=== PATIENT | male | born 1985 | race Caucasian/White ===

== ENCOUNTER → 2019-11-20 12:40 | Outpatient (BNVA) | payer OTHER, SELFPAY | PROVIDERS: Family Provider Counselor Professional; Visit Provider Family Medicine | DX: M25.571 Pain in right ankle and joints of right foot (principal); M25.471 Effusion, right ankle | CPT/HCPCS: 73610 ==

== ENCOUNTER 2022-02-26 21:20 | Inpatient (IN) | payer MEDICAID, SELFPAY ==
[2022-02-26 21:27] VITALS: BP 152/98; PULSE 95; RESP 18; TEMP 36.7; O2SAT 95; BMI 37.5
--- NOTE | 2022-02-26 21:34 | ED_ITS ---
HPI - General Adult General: Chief complaint: Psychiatric Symptoms Stated complaint: behavior Time Seen by Provider: 02/26/22 21:26 History of Present Illness: HPI: [36]yo patient w/ hx of depression BIBA for worsening depression. He reports suicidal ideation without plan. He feels so depressed that he cannot take care of his family would like to get help at this time. On arrival, the patient is AAOx3 and cooperative with my evaluation. No focal complaints of chest pain, shortness of breath, palpitations, N/V, focal GI/ complaints. Currently denies HI. No complaints of hallucinations. Onset: acute on chronic Duration: ongoing Location: home Severity: severe Associated symptoms: Deny chest pain, dyspnea, nausea, rash, palpitations or vom iting Review of Systems Const: Denies: fever(s) or chills Eyes: Denies: change in vision ENMT: Denies: mouth pain Card: Denies: chest pain or palpitations Resp: Denies: dyspnea or non-productive cough GI: Denies: abdominal pain, nausea, vomiting or diarrhea : Denies: dysuria Musc: Denies: extremity pain Skin/Breast: Denies: rash or new lesions Neuro: Denies: weakness in extremities Psych: Reports: depression and suicidal ideation [place]/Lymph: Denies: easy bruising PFSH ED PFSH: Medical History Depression Social History Smoking and tobacco status: former smoker Alcohol intake: never Physical Exam Const: COMMON NORMALS: alert HENMT: COMMON NORMALS: atraumatic HEAD & SCALP: atraumatic MOUTH: moist mucous membranes not abnormal Eye: COMMON NORMALS: EOMs intact bilaterally and conjunctivae normal CONJUN CTIVA: Yes conjunctivae normal Neck/C-Spine: COMMON NORMALS: full ROM and supple Resp: COMMON NORMALS: normal respiratory effort and clear to auscultation bilaterally AUSCULTATION: clear to auscultation bilaterally Cardio: COMMON NORMALS: regular rate RATE: regular rate GI: COMMON NORMALS: Soft to palpation and non-tender PALPATION: Yes Soft to palpation Extremity: COMMON NORMALS: full ROM Neuro: SENSORIUM/ORIENTATION: Yes alert MOTOR EXAM: No Abnormal motor strength present and Other motor observations present (no focal motor deficits) Psych: COMMON NORMALS: speech normal SPEECH: Yes normal speech MOOD & AFFECT: Yes depressed mood Course Vital Signs: Vital signs: Vital Signs Temperature 97.9 F 03/04/22 06:00 Pulse Rate 83 03/04/22 06:00 Respiratory Rate 20 H 03/04/22 06:00 Blood Pressure 138/80 03/04/22 06:00 Pulse Oximetry 97 03/04/22 06:00 MDM - General Adult Medical Decision Making [36]yo patient w/ hx of depression presenting for worsening depression, suicidal ideation and hopelessness. HDS, exam within normal limit Thoughts are linear and organized, and the patient has no AH/VH, or HI. Clinically the patient displays no overt toxidrome; they are well appearing, with low suspicion for toxic ingestion given history and exam. Symptoms unlikely 2/2 anemia, hypothyroidism, infection, or ICH. Workup: CBC, CMP, Lipase, salicylate/tylenol, UDS Lab findings: wnl [10:30pm] On reassessment, labs and workup wnl. Patient is hemodynamically stable with no acute medical complaints. Case discussed with psychiatric provider Dr. Faulkner at [facility] psych inpatient with recommendation for admission Disposition: Psych Lab Data : 03/02/22 04:02 03/02/22 04:02 Radiology Impressions Abdomen X-Ray 02/28/22 16:50 IMPRESSION: No acute findings. Abdomen/Pelvis CT 02/28/22 20:18 IMPRESSION: Diffuse colonic wall thickening consistent with colitis. Laboratory Results WBC 12.4 10^3/uL (4.0-10.0) H 02/26/22 22:10 RBC 4.84 10^6/uL (4.1-5.3) 02/26/22 22:10 Hgb 14.4 g/dL (11.7-16.6) 02/26/22 22:10 Hct 41.6 % (42.0-52.0) L 02/26/22 22:10 MCV 86.0 fl (80-94) 02/26/22 22:10 MCH 29.8 pg (28.0-34.0) 02/26/22 22:10 MCHC 34.6 g/dL (30.0-36.0) 02/26/22 22:10 RDW 12.6 % (12.1-15.1) 02/26/22 22:10 Plt Count 317 10^3/cmm (130-400) 02/26/22 22:10 MPV 9.0 fL (7.4-10.4) 02/26/22 22:10 Neut % (Auto) 73.0 % 02/26/22 22:10 Lymph % (Auto) 10.5 % 02/26/22 22:10 [place] % (Auto) 10.5 % 02/26/22 22:10 Eos % (Auto) 5.0 % 02/26/22 22:10 Baso % (Auto) 0.6 % 02/26/22 22:10 Neut # (Auto) 9.00 10^3/uL (1.8-7.7) H 02/26/22 22:10 Lymph # (Auto) 1.3 10^3/uL (0.8-4.8) 02/26/22 22:10 [place] # (Auto) 1.3 10^3/uL (0.2-0.9) H 02/26/22 22:10 Eos # (Auto) 0.6 10^3/uL (0.0-0.8) 02/26/22 22:10 Baso # (Auto) 0.1 10^3/uL (0.0-0.1) 02/26/22 22:10 Nucleated RBC % (auto) 0 % 02/26/22 22:10 Nucleated RBCs # 0.0 /100WBC 02/26/22 22:10 Sodium 138 mmol/L (136-145) 02/26/22 22:10 Potassium 3.9 mmol/L (3.5-5.1) 02/26/22 22:10 Chloride 101 mmol/L (98-107) 02/26/22 22:10 Carbon Dioxide 25 mmol/L (22-29) 02/26/22 22:10 Anion Gap 15.9 (5-19) 02/26/22 22:10 BUN 12 mg/dL (6-20) 02/26/22 22:10 Creatinine 0.8 mg/dL (0.7-1.2) 02/26/22 22:10 GFR Calculation 109.4 mL/min (90-130) 02/26/22 22:10 Glucose 117 mg/dL (65-115) H 02/26/22 22:10 Calculated Osmolality 287 mOsm/kg (285-295) 02/26/22 22:10 Calcium 9.5 mg/dL (8.5-10.5) 02/26/22 22:10 Total Bilirubin 0.7 mg/dL (0.15-1.2) 02/26/22 22:10 AST 124 U/L (0-40) H 02/26/22 22:10 ALT 134 U/L (0-41) H 02/26/22 22:10 Alkaline Phosphatase 52 IU/L (40-130) 02/26/22 22:10 Total Protein 7.0 g/dL (6.6-8.7) 02/26/22 22:10 Albumin 4.4 g/dL (3.5-5.2) 02/26/22 22:10 Globulin 2.6 g/dL (1.3-4.6) 02/26/22 22:10 Lipase 14 U/L (13-60) 02/26/22 22:10 Salicylates 0.5 mg/dL (3-10) L 02/26/22 22:10 Urine Opiates Screen Negative ng/mL (Negative) 02/26/22 22:10 Acetaminophen < 5.0 ug/mL (10-30) L 02/26/22 22:10 Ur Barbiturates Screen Negative ng/mL (Negative) 02/26/22 22:10 Ur Phencyclidine Scrn Negative ng/mL (Negative) 02/26/22 22:10 Ur Amphetamines Screen Negative ng/mL (Negative) 02/26/22 22:10 U Benzodiazepines Scrn Negative ng/mL (Negative) 02/26/22 22:10 Urine Cocaine Screen Negative ng/mL (Negative) 02/26/22 22:10 U Marijuana (THC) Screen Positive ng/mL (Negative) H 02/26/22 22:10 Ethyl Alcohol < 10 mg/dL (0-10) 02/26/22 22:10 Discharge Plan Discharge Patient Disposition: Admitted As Inpatient Admit Provider: Pramod Faulkner Clinical Impression: Depression with suicidal ideation, Hopelessness Condition: Stable Coding Level of Care Code ED Coal Miner for Chg Fwd Exam Comprehensive
[2022-02-26 22:14] LABS: Basophils # 0.1 10^3/uL (0.0-0.1); Basophils % 0.6 %; Eosinophils # 0.6 10^3/uL (0.0-0.8); Hematocrit 41.6 % (42.0-52.0); Hemoglobin 14.4 g/dL (11.7-16.6); Lymphocytes # 1.3 10^3/uL (0.8-4.8); Lymphocytes % 10.5 %; Mean Corpuscular HGB Conc 34.6 g/dL (30.0-36.0); Mean Corpuscular Hemoglobin 29.8 pg (28.0-34.0); Monocytes # 1.3 10^3/uL (0.2-0.9); Monocytes % 10.5 %; Nucleated Red Blood Cells % 0 %; Platelet Count 317 10^3/cmm (130-400); Red Blood Count 4.84 10^6/uL (4.1-5.3); Red Cell Distribution Width 12.6 % (12.1-15.1); White Blood Count 12.4 10^3/uL (4.0-10.0)
[2022-02-26 22:30] LABS: Potassium 3.9 mmol/L (3.5-5.1)
[2022-02-26 22:33] LABS: Amphetamines Screen Urine Negative (Negative); Barbiturates Screen Urine Negative (Negative); Benzodiazepines Screen Urine Negative (Negative); Cocaine Screen Urine Negative (Negative); Opiate Screen Urine Negative (Negative); PCP Screen Urine Negative (Negative); THC Screen Urine Positive (Negative)
[2022-02-26 22:35] LABS: Acetaminophen < 5.0 ug/mL (10-30); Alanine Aminotransferase 134 U/L (0-41); Albumin Level 4.4 g/dL (3.5-5.2); Alkaline Phosphatase 52 IU/L (40-130); Anion Gap 15.9 (5-19); Aspartate Amino Transferase 124 U/L (0-40); Blood Urea Nitrogen 12 mg/dL (6-20); Calcium 9.5 mg/dL (8.5-10.5); Carbon Dioxide 25 mmol/L (22-29); Chloride 101 mmol/L (98-107); Globulin 2.6 g/dL (1.3-4.6); Glomerular Filtration Rate 109.4 mL/min (90-130); Glucose 117 mg/dL (65-115); Lipase 14 U/L (13-60); Osmolality Calculated 287 mOsm/kg (285-295); Salicylate 0.5 mg/dL (3-10); Sodium 138 mmol/L (136-145); Total Bilirubin 0.7 mg/dL (0.15-1.2)
[2022-02-26 23:16] VITALS: BP 151/97; PULSE 94; RESP 18; TEMP 36.8; O2SAT 96
[2022-02-26 23:28] VITALS: BP 145/99; PULSE 93; RESP 18; TEMP 36.8; O2SAT 99
[2022-02-26 23:32] LABS: Alcohol Level < 10 mg/dL (0-10)
[2022-02-27] MEDS: OLANZapine 5 mg ODT PO ×2 (00:31→07:42)
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
[2022-02-27 06:00] VITALS: BP 138/88; PULSE 89; RESP 16; TEMP 36.9; O2SAT 96
--- NOTE | 2022-02-27 07:43 | PC.NURSE ---
Patient at nurses station with pressured speech, flight of ideas and reading from his menu loudly. Zydis 5mg sl given for this.
[2022-02-27] MEDS: hyDROXYzine 25 mg Capsule 50 MG PO (08:12)
--- NOTE | 2022-02-27 08:12 | PC.NURSE ---
PRN VISTARIL 50 MG GIVEN PO PER PT C/O ANXIETY
--- NOTE | 2022-02-27 13:05 | PC.OT ---
PER NURSING REQUEST, NPU OT EVAL NOT PERFORMED DUE TO AGITATION. WILL TRY AGAIN TOMORROW
[2022-02-27 14:00] VITALS: BP 171/96; PULSE 98; RESP 20; TEMP 36.7; O2SAT 95
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
[2022-02-27 18:55] VITALS: BP 156/96; PULSE 115; TEMP 37.4; O2SAT 91
[2022-02-27 22:00] VITALS: BP 156/96; PULSE 115; RESP 20; TEMP 37.4; O2SAT 91
[2022-02-28 06:00] VITALS: BP 132/74; PULSE 104; RESP 16; TEMP 36.8; O2SAT 97
--- NOTE | 2022-02-28 09:15 | PC.NURSE ---
IN ROOM CALM AND COOPERATIVE WITH ASSESSMENT. APPEARS TO HAVE POISON ALINA OVER ENTIRE BODY. ORDERS RECEIVED FOR CALAMINE LOTION. PT APPLIED ORDERED. DENIES PAIN. DENIES SI/HI AND AVH AT THIS TIME. SUPPORT VOICED.
[2022-02-28 14:00] VITALS: BP 150/93; PULSE 119; RESP 18; TEMP 36.9; O2SAT 94
[2022-02-28] MEDS: ondansetron 4 MG Tablet PO (14:18)
--- NOTE | 2022-02-28 14:20 | PC.NURSE ---
NEW ORDER NEW ORDER RECEIVED TO PLACE ORDER FOR MEDICAL CONSULT. PT IS COVERED IN RAISED RASH. CONSULT WITH DR. LEAL COMPLETED. PT C/O STOMACH PAIN WITH DIARRHEA. PT HAS HYPOACTIVE BS TIMES 4 IN ALL QUADRANTS. REPORTS HE IS NAUSEATED. ZOFRAN 4 MG GIVEN ORDERED.
--- NOTE | 2022-02-28 14:24 | P.CONIM_ITS ---
Providers/Reason For Consult Consulting Physician/Specialty*: Internal Medicine/Christy MD Elham Reason for Consult*: abdominal pain, rash Requesting Physician: Dr. Faulkner Attending Physician: Pramod Faulkner MD History of Present Illness History of Present Illness Sebas Bush is a 36 year old male with no significant past medical history presented to the hospital today for suicidal ideation. He has been admitted in the n.p.o. and is being treated for that. During his stay in the n.p.o. patient developed a rash on his bilateral arms bilateral legs, abdomen area any complaint of abdominal pain. He has been having diarrhea for which hospitalist team has been consulted. Patient states the diarrhea has been going on for the last few days. He states his watery diarrhea and he has gone to the bathroom several times pretty much every 1 hour. He states that in the past he was being worked up for Crohn's disease but was not sure what the result of it was. He states he has never had any imaging done for his abdomen. However he has had a colonoscopy done which did not show any Crohn's at that point. He was recently at [facility] for which she received IV antibiotics. He is unsure of what his exact diagnoses worse. He is somewhat of a poor historian. Also he states that he is unsure if he has had any tick bites. He has not seen a tick on him. He states but he is in an area where he could have had a tick bite but is unsure. The rashes on his bilateral forearms and bilateral lower extremities along with some area of his abdomen. He says the rash itches. He also complains of mild abdominal pain which is diffuse in nature. Denies any constipation, fever, shortness of breath, chest pain. Patient is a smoker. Medications/Allergies Home Medications Medication Instructions Recorded Confirmed Last Taken Type No Known Home Medications 11/20/19 02/26/22 Unknown History Allergies Allergy/AdvReac Type Severity Reaction Status Date / Time No Known Allergies Allergy Verified 12/03/19 09:31 Current Medications Generic Name Dose Route Start Last Admin Trade Name Freq PRN Reason Stop Dose Admin Hydroxyzine Pamoate 50 mg 02/26/22 23:28 02/27/22 08:12 Hydroxyzine 25 Mg Capsule PO 50 mg Q6H PRN Administration ANXIETY Olanzapine 5 mg 02/26/22 23:28 02/27/22 07:42 Olanzapine 5 Mg Odt PO 5 mg Q4H PRN Administration Agitation/Psychosis Ondansetron HCl 4 mg 02/26/22 23:28 02/28/22 14:18 Ondansetron 4 Mg Tablet PO 4 mg Q6H PRN Administration NAUSEA AND VOMITING PFSH Acute PFSH: Medical History Depression Social History Smoking and tobacco status: former smoker Alcohol intake: never Vitals/I&O/Wt Last Vital Signs Temp 98.2 F 02/28/22 06:00 Pulse 104 H 02/28/22 06:00 Resp 16 02/28/22 06:00 BP 132/74 02/28/22 06:00 Pulse Ox 97 02/28/22 06:00 Weight last 48 hrs Weight 129.274 kg Physical Exam Narrative: General: Alert oriented x3, patient seen sitting up in bed appearing comfortable no acute distress. HEENT: Normocephalic, atraumatic, EOMI, breathing normally. Cardio: Regular rate rhythm, normal S1-S2, no murmurs Respiratory: Good bilateral air entry, no wheezes no rhonchi appreciated GI: Abdomen soft, nontender, nondistended, very hypoactive bowel sounds Behavior: Appropriate and cooperative Extremities: no edema, no cyanosis Data : 02/28/22 17:25 02/28/22 17:25 A&P Assessment and plan (1) Rash: Status: Acute (2) Cannabis use disorder, severe, dependence: Status: Acute (3) Major depression, recurrent: Status: Acute (4) Depression with suicidal ideation: Status: Acute (5) Hopelessness: Status: Acute (6) Diarrhea: Status: Acute (7) Abdominal pain: Status: Acute Plan #Abdominal pain #Diarrhea, rule out colitis #Macular rash bilateral upper and lower extremities, abdomen ? I will check stool culture for ova parasites, bacteria, C. difficile ? Start normal saline IV fluids - Keep patient n.p.o. for now and advance diet as tolerated -Check basic laboratory panel, CBC, CMP, magnesium ? We will check KUB and CT scan of abdomen to rule out colitis ? Check stool for lactoferrin ? Check for tick panel ? Patient has received Benadryl for his rash at this time which appears to be getting better. I will continue the same. Also apply calamine lotion as needed. ? I will hold off on antibiotics for now until results of stool culture and CAT scan -Monitor patient for now #Depression, anxiety, suicidal ideation ? Management as per primary psychiatric team Full code Consult Attestations Medical Necessity Statement: Defer to primary team. Coding Level of Care Code Acute Chopper Feeder for [facility] Fwd Diagnoses Rash R21 Cannabis use disorder, severe, dependence F12.20 Major depression, recurrent F33.9 Depression with suicidal ideation F32.A; R45.851 Hopelessness R45.89 Diarrhea R19.7 Abdominal pain R10.9
--- NOTE | 2022-02-28 16:50 | XRR_ITS ---
PROCEDURE INFORMATION: Exam: XR Abdomen Exam date and time: 02/28/2022 5:42 PM Age: 36 years old Clinical indication: Abdominal pain; Additional info: Hypoactive bowel sounds TECHNIQUE: Imaging protocol: Radiologic exam of the abdomen. Views: Frontal supine view of the abdomen. 1 View. COMPARISON: No relevant prior studies available. FINDINGS: Gastrointestinal tract: Normal. No bowel dilation. Bones/joints: Unremarkable. XR/XR abdomen 1V* [id number] IMPRESSION: No acute findings.
--- NOTE | 2022-02-28 17:38 | PC.NURSE ---
DR. LEAL WAS HERE ON UNIT AT APPROXIMATELY 1600. DR. LEAL PLACED ORDERS FOR URINE CULTURE, CXR, CDIFF AND STOOL CULTURES. UA AND STOOL OBTAINED, LAB HERE TO DRAW BLOOD CULTURES. EDUCATION PROVIDED TO PT. VERBALIZES UNDERSTANDING.
[2022-02-28 17:40] LABS: Basophils # 0.1 10^3/uL (0.0-0.1); Basophils % 0.5 %; Eosinophils # 0.7 10^3/uL (0.0-0.8); Eosinophils % 4.6 %; Hematocrit 41.1 % (42.0-52.0); Lymphocytes % 13.8 %; Mean Corpuscular HGB Conc 34.1 g/dL (30.0-36.0); Mean Corpuscular Hemoglobin 29.6 pg (28.0-34.0); Mean Corpuscular Volume 86.9 fl (80-94); Monocytes # 1.1 10^3/uL (0.2-0.9); Monocytes % 7.8 %; Neutrophils # 10.44 10^3/uL (1.8-7.7); Neutrophils % 72.5 %; Nucleated Red Blood Cells % 0 %; Platelet Count 300 10^3/cmm (130-400); Red Blood Count 4.73 10^6/uL (4.1-5.3); Red Cell Distribution Width 12.7 % (12.1-15.1); White Blood Count 14.4 10^3/uL (4.0-10.0)
--- NOTE | 2022-02-28 18:12 | W.PM.NPUPNS ---
Subjective NPU Subjective: Patient presents today reporting that he is focused on what ever he has to do to get better. He talked about wondering if we had employment opportunities or special work programs or anything like that he really feels like he needs that have something that has housing and work wrapped into it for him to get back on his feet. He continues to have the elaborate rash that was identified yesterday. Hospitalist consult was conducted and investigative studies are underway. Mental Status Exam MSE Comments: This is an obese white male with reddish beck in hospital scrubs with limited grooming and adequate eye contact. No abnormal movements except for mild psychomotor agitation. Mostly cooperative with exam in mild distress. Speech was normal rate and volume. Mood described as I feel like I am doing better I does want to get help, affect is congruent. Thought process, mostly organized. Thought content: patient denies any suicidal or homicidal ideation, reports some paranoia and persecutory delusions noted, and endorses auditory and visual hallucinations sometimes. Attention and concentration are intact and memory appeared reliable but none were formally tested. He is alert and oriented three times. Insight and judgment are limited versus impaired. Impulse control is impaired. Vitals/I&O/Wt Last Vital Signs Temp 98.3 F 02/28/22 21:06 Pulse 110 H 02/28/22 21:06 Resp 20 H 02/28/22 21:06 BP 130/75 02/28/22 21:06 Pulse Ox 96 02/28/22 21:06 Data NPU : 02/28/22 17:25 02/28/22 17:25 Micro: Microbiology 02/28/22 17:19 Stool Lactoferrin - Final Stool - Stool Aspirate 02/28/22 17:25 Blood Culture - Preliminary Blood SPECIMEN COLLECTED 02/28/22 17:25 Blood Culture - Preliminary Blood SPECIMEN COLLECTED Microbiology 02/28/22 17:19 Stool - Stool Aspirate Stool Lactoferrin - Final 02/28/22 17:25 Blood Blood Culture - Preliminary SPECIMEN COLLECTED 02/28/22 17:25 Blood Blood Culture - Preliminary SPECIMEN COLLECTED A&P Assessment and plan (1) Cannabis use disorder, severe, dependence: Status: Acute (2) Major depression, recurrent: Status: Acute (3) Depression with suicidal ideation: Status: Acute (4) Hopelessness: Status: Acute (5) Rash: Status: Acute Plan This is a 36 year old white male with a history of trauma and genetic loading for mental health and addiction issues who presents having been brought in due to being deemed a danger to his children, endorsing he is doing well without medications and wanting to continue without them. 1.? Continue without medications. while investigation underway but discussing mood stabilizer if he would consider. 2.? Encourage individual, group and milieu therapy 3.? Continue q-15 minute check for safety 4.? Recommend sober living treatment at the highest level of care to which the patient is willing to commit. 5. Hospitalist consult requested and undertaken. Awaiting results. Investigating GI and skin complaints including the rash over most of his skin. Involuntary Hold Information 96 Hour Hold: 96 Hour Involuntary Admission: No Attestations NPU Medical Necessity Statement*: Inpatient hospitalization is medically necessary and the clinically appropriate intervention at this time. We will monitor medications and make changes as indicated. Likely length of stay is three to five days. Coding Level of Care Code Acute Customer Support Representative for [facility] Diagnoses Cannabis use disorder, severe, dependence F12.20 Major depression, recurrent F33.9 Depression with suicidal ideation F32.A; R45.851 Hopelessness R45.89 Rash R21
[2022-02-28 18:40] LABS: Alanine Aminotransferase 97 U/L (0-41); Alkaline Phosphatase 67 IU/L (40-130); Anion Gap 13.4 (5-19); Aspartate Amino Transferase 48 U/L (0-40); Blood Urea Nitrogen 9 mg/dL (6-20); Calcium 9.1 mg/dL (8.5-10.5); Carbon Dioxide 23 mmol/L (22-29); Chloride 99 mmol/L (98-107); Globulin 3.1 g/dL (1.3-4.6); Glomerular Filtration Rate 95.5 mL/min (90-130); Glucose 120 mg/dL (65-115); Osmolality Calculated 274 mOsm/kg (285-295); Potassium 3.4 mmol/L (3.5-5.1); Sodium 132 mmol/L (136-145); Total Bilirubin 0.4 mg/dL (0.15-1.2); Total Protein 7.1 g/dL (6.6-8.7)
--- NOTE | 2022-02-28 20:18 | CTR_ITS ---
PROCEDURE INFORMATION: Exam: CT Abdomen And Pelvis With Contrast Exam date and time: 02/28/2022 8:51 PM Age: 36 years old Clinical indication: Abdominal pain; Generalized; Patient HX: Diffuse abd pain with reduced bowel sounds. ; Additional info: Hypoactive abdominal sounds, abdominal pain TECHNIQUE: Imaging protocol: Computed tomography of the abdomen and pelvis with contrast. Radiation optimization: All CT scans at this facility use at least one of these dose optimization techniques: automated exposure control; mA and/or kV adjustment per patient size (includes targeted exams where dose is matched to clinical indication); or iterative reconstruction. Contrast material: OMNI 350; Contrast volume: 75 ml; Contrast route: INTRAVENOUS (IV); COMPARISON: CR (ABDOMEN, ) 02/28/2022 5:42 PM RADIATION DOSE METRICS: Total DLP (mGy-cm): 1995.61 FINDINGS: Liver: Normal. No mass. Gallbladder and bile ducts: Normal. No calcified stones. No ductal dilation. Pancreas: Normal. No ductal dilation. Spleen: Normal. No splenomegaly. Adrenal glands: Normal. No mass. Kidneys and ureters: Normal. No hydronephrosis. Stomach and bowel: Diffuse colonic wall thickening consistent with colitis. Appendix: No evidence of appendicitis. Intraperitoneal space: Unremarkable. No free air. No significant fluid collection. Vasculature: Unremarkable. No abdominal aortic aneurysm. Lymph nodes: Unremarkable. No enlarged lymph nodes. Urinary bladder: Unremarkable as visualized. Reproductive: Unremarkable as visualized. Bones/joints: Unremarkable. No acute fracture. Soft tissues: Unremarkable. CT/CT abdomen pelvis w con* [id number] IMPRESSION: Diffuse colonic wall thickening consistent with colitis.
[2022-02-28] MEDS: iohexol 300 mg/mL 100 mL Btl IV (20:49)
[2022-02-28 21:06] VITALS: BP 130/75; PULSE 110; RESP 20; TEMP 36.8; O2SAT 96
[2022-02-28] MEDS: loperamide 2 mg Capsule PO (23:24)
--- NOTE | 2022-02-28 23:28 | PC.NURSE ---
PRN PT REQUESTED SOMETHING TO HELP WITH DIARRHEA. PT STATES HE HAS HAD MULTIPLE TRIPS TO THE BATHROOM. IMODIUM WAS GIVEN. PT IS RESTING IN BED
[2022-03-01 05:08] LABS: Add Urine Culture? No; Bacteria Urine TRACE /hpf; Bilirubin Urine 1+ (Negative); Blood Urine Neg (Negative); Glucose Urine UA Norm (Normal); Ketones Urine 1+ (Negative); Leukocyte Esterase Urine Negative (Negative); Mucus Urine 4+ /hpf; Nitrate Urine Negative (Negative); Protein Urine Neg (Negative); RBC Urine 0-4 /hpf (0-2); Specific Gravity, Urine 1.025 (1.005-1.030); Squamous Epithelial Cell Urine 0-4 /hpf (0-5); Urine Appearance Clear (CLEAR); Urine Color Yellow (Yellow); Urobilinogen Urine Norm (Negative); WBC Urine 0-4 /hpf (0-5); pH Urine 5 (5-7)
[2022-03-01 06:00] VITALS: BP 165/83; PULSE 95; RESP 16; TEMP 36.6; O2SAT 95
--- NOTE | 2022-03-01 08:23 | PC.NURSE ---
DR. LEAL CALLED THIS RN AND NOTIFIED THAT PT NEEDS TRANSFERRED TO [facility]. CALLED HOUSE SUP TO GET BED. WAITING ON BED. PT EDUCATED THAT HE WOULD BE LEAVING SOON A BED IS AVAILABLE. DR. LEAL STATED THAT PT HAS COLITIS.
--- NOTE | 2022-03-01 12:35 | PC.NURSE ---
Nurse educated about pt being NPO! Pt did however eat lunch! Pt reducated on the importance of staying NPO. Pt agreed that he would comply.Pt has been NPO starting at 12:05.
--- NOTE | 2022-03-01 13:01 | PC.NURSE ---
CRITICAL RESULTS LAB CALLED AND NOTIFIED FERRULER OF CRITICAL RESULT. PT IS POSITIVE FOR CAMPYLOBACTER FROM STOOL. NOTIFIED DR. LEAL OF RESULTS. DR. LEAL STATED THAT PT NEEDS TO BE MOVED TO [facility] TO START ANTIBIOTIC THERAPY. CALLED HOUSE SUP, STATES [facility] IS REARRANGING BEDS TO GET PT MOVED.
[2022-03-01 14:00] VITALS: BP 142/90; PULSE 92; RESP 18; O2SAT 94
--- NOTE | 2022-03-01 14:55 | W.PM.NPUPNS ---
Subjective NPU Subjective: Patient presents today reporting that he is glad that we were able to get the medical team to explore his situation. He reports that at times he had flareups and was not sure what was really going on. We agreed that at this point without significant concerns we would monitor him on the hospital floor and consider medications for his mental health issues as they were initially concerns for possible medication allergies. Otherwise he denied any issues and reports that he is only trigger to the medical floor. Mental Status Exam MSE Comments: This is an obese white male with reddish beck in hospital scrubs with limited grooming and adequate eye contact. No abnormal movements except for mild psychomotor agitation. Mostly cooperative with exam in no acute distress. Speech was normal rate and volume. Mood described as okay, affect is congruent. Thought process, mostly organized. Thought content: patient denies any suicidal or homicidal ideation, reports some paranoia and persecutory delusions noted, and endorses auditory and visual hallucinations sometimes. Attention and concentration are intact and memory appeared reliable but none were formally tested. He is alert and oriented three times. Insight and judgment are limited versus impaired. Impulse control is impaired. Vitals/I&O/Wt Last Vital Signs Temp 97.9 F 03/01/22 06:00 Pulse 95 03/01/22 06:00 Resp 16 03/01/22 06:00 BP 165/83 03/01/22 06:00 Pulse Ox 95 03/01/22 06:00 Data NPU : 03/02/22 04:02 03/02/22 04:02 Micro: Microbiology 02/28/22 17:19 Enteric Pathogens (PCR) - Final Stool Routine Collection Parasite Antigen Panel - Final 02/28/22 17:19 C.difficile Toxin B Gene (PCR) - Final Stool 02/28/22 17:19 Stool Lactoferrin - Final Stool - Stool Aspirate 02/28/22 17:25 Blood Culture - Preliminary Blood SPECIMEN COLLECTED 02/28/22 17:25 Blood Culture - Preliminary Blood SPECIMEN COLLECTED Microbiology 02/28/22 17:19 Stool Routine Collection Enteric Pathogens (PCR) - Final 02/28/22 17:19 Stool Routine Collection Parasite Antigen Panel - Final 02/28/22 17:19 Stool C.difficile Toxin B Gene (PCR) - Final 02/28/22 17:19 Stool - Stool Aspirate Stool Lactoferrin - Final 02/28/22 17:25 Blood Blood Culture - Preliminary SPECIMEN COLLECTED 02/28/22 17:25 Blood Blood Culture - Preliminary SPECIMEN COLLECTED A&P Assessment and plan (1) Abdominal pain: Status: Acute (2) Diarrhea: Status: Acute (3) Rash: Status: Acute (4) Cannabis use disorder, severe, dependence: Status: Acute (5) Major depression, recurrent: Status: Acute (6) Depression with suicidal ideation: Status: Acute (7) Hopelessness: Status: Acute Plan This is a 36 year old white male with a history of trauma and genetic loading for mental health and addiction issues who presents having been brought in due to being deemed a danger to his children, endorsing he is doing well without medications and wanting to continue without them. 1.? Continue without medications. We will continue to discuss mood stabilizer if he would consider. 2.? Encourage individual, group and milieu therapy 3.? Continue q-15 minute check for safety 4.? Recommend sober living treatment at the highest level of care to which the patient is willing to commit. 5.? Appreciate hospitalist consult and will await transfer and continue following patient on the MedSurg floor. Involuntary Hold Information 96 Hour Hold: 96 Hour Involuntary Admission: No Attestations NPU Medical Necessity Statement*: N/A. We will continue to monitor on the MedSurg floor but defer to primary team for medical necessity. Coding Level of Care Code Acute Accounts Payable Supervisor for g Fwd Diagnoses Abdominal pain R10.9 Diarrhea R19.7 Rash R21 Cannabis use disorder, severe, dependence F12.20 Major depression, recurrent F33.9 Depression with suicidal ideation F32.A; R45.851 Hopelessness R45.89
[2022-03-01 16:34] VITALS: BP 144/81; PULSE 87; RESP 18; TEMP 36.4; O2SAT 95
--- NOTE | 2022-03-01 16:34 | PC.NURSE ---
PT AMBULATING IN HALLWAY, BECAME UNSTEADY ON FEET. THIS RN UP TO PT SIDE AND ASSISTED TO ROOM. PT LAID DOWN TO REST. VS 144/81, 87, 20 95% ON RA AND TEMP 97.5. CALLED MED SURG TO GIVE REPORT. NURSE ON FLOOR IS TO HAVE RN CALL THIS RN WITH REPORT.
--- NOTE | 2022-03-01 17:05 | PC.NURSE ---
TRANSFER TO [facility] SUR[facility] PT TRANSFERRED TO [facility] SURGE ROOM ROOM 276-1. TRANSFERRED WITH DIRECTOR AND THIS RN. PT WAS REPORT STOMACH PAIN DURING TRANSFERRING UP TO [facility] SUR[facility]. ASSISTED TO BED. REPORTED TO NURSE THAT PT WAS ON FLOOR. DIRECTOR REMAINED WITH PT UNTIL ONE ON ONE STAFF WAS AVAILABLE TO SIT WITH PT. REPORT GIVEN TO MOIRA IZQUIERDO.
[2022-03-01] MEDS: acetaminophen 325 mg Tablet 650 MG PO ×2 (17:27→22:22)
[2022-03-01] MEDS: metroNIDAZOLE IV 500 MG/100 ML PREMIX 100 MG IV (17:41)
--- NOTE | 2022-03-01 19:25 | PM.PN ---
Subjective Subjective: Seen today. Patient no longer NPO. He started eating. Abdomen does feel a little better. CT scan shows colitis Stool culture positive for Campylobacter Vitals/I&O/Wt Last Vital Signs Temp 97.5 F L 03/01/22 16:34 Pulse 87 03/01/22 16:34 Resp 18 03/01/22 16:34 BP 144/81 03/01/22 16:34 Pulse Ox 95 03/01/22 16:34 Physical Exam Narrative: General: Alert oriented x3, no acute distress Cardio: Regular rate rhythm, normal S1-S2, no murmurs Respiratory: Good bilateral air entry, no wheezes no rhonchi appreciated GI: Abdomen soft, nontender, nondistended, hypoactive bowel sounds but present. Behavior: Appropriate and cooperative Extremities: no edema, no cyanosis, macular rash bilateral upper and lower extremities, including abdomen appears much better compared to yesterday and improving. Data : 02/28/22 17:25 02/28/22 17:25 Micro: Microbiology 02/28/22 17:25 Blood Culture - Preliminary Blood NEGATIVE TO DATE 02/28/22 17:25 Blood Culture - Preliminary Blood NEGATIVE TO DATE 02/28/22 17:19 Enteric Pathogens (PCR) - Final Stool Routine Collection Parasite Antigen Panel - Final 02/28/22 17:19 C.difficile Toxin B Gene (PCR) - Final Stool 02/28/22 17:19 Stool Lactoferrin - Final Stool - Stool Aspirate A&P Assessment and plan (1) Abdominal pain: Status: Acute (2) Diarrhea: Status: Acute (3) Rash: Status: Acute (4) Cannabis use disorder, severe, dependence: Status: Acute (5) Major depression, recurrent: Status: Acute (6) Depression with suicidal ideation: Status: Acute (7) Hopelessness: Status: Acute Plan #Abdominal pain and diarrhea secondary to Campylobacter jejuni colitis #Macular rash bilateral upper and lower extremities, abdomen ? Stool culture positive for Campylobacter ? Continue normal saline 125 cc/h ? Start GI soft diet ? Labs ordered for today are still pending. Unsure why they have not been processed yet ? Start Zosyn IV. Move patient to medical surgical floor. ? WBC count elevated 14,000 from last yesterday evening. ? We will continue current treatment and possibly switch to oral azithromycin after day of IV. ? Tick panel pending ? Continue Benadryl for patient's rash which is already appearing much better compared to before. Unsure what might of caused it. It could be a possible allergic reaction to a drug which I cannot identify at this time. -We will reassess patient in a.m. ? Check labs in a.m. again. #Depression, anxiety, suicidal ideation ? Management as per primary psychiatric team Full code Attestations Medical Necessity Statement*: Defer to primary team. Coding Level of Care Code Acute Internal Grinder for [facility] Fwd Diagnoses Abdominal pain R10.9 Diarrhea R19.7 Rash R21 Cannabis use disorder, severe, dependence F12.20 Major depression, recurrent F33.9 Depression with suicidal ideation F32.A; R45.851 Hopelessness R45.89
[2022-03-01 19:47] VITALS: BP 153/94; PULSE 86; RESP 19; TEMP 36.7; O2SAT 96
[2022-03-01] MEDS: piperacillin-tazobactam 3.375 GM in sodium chloride 0.9% (plus) 50 ML IV (20:19)
[2022-03-01] MEDS: sodium chloride 0.9% 1,000 ML 125 ML IV (20:20)
[2022-03-01] MEDS: trazodone 50 mg Tablet PO (20:21)
[2022-03-01] MEDS: haloperidol 5 mg Tablet PO (20:21)
[2022-03-01 22:00] VITALS: BP 118/75; PULSE 104; RESP 17; TEMP 36.6; O2SAT 96
[2022-03-02] MEDS: metroNIDAZOLE IV 500 MG/100 ML PREMIX 100 MG IV (02:34)
[2022-03-02] MEDS: sodium chloride 0.9% 1,000 ML 125 ML IV ×2 (02:34→11:14)
[2022-03-02] MEDS: piperacillin-tazobactam 3.375 GM in sodium chloride 0.9% (plus) 50 ML IV ×2 (02:34→11:14)
[2022-03-02 04:06] VITALS: BP 98/64; PULSE 66; RESP 16; TEMP 36.7; O2SAT 96
[2022-03-02 04:32] LABS: Basophils # 0.1 10^3/uL (0.0-0.1); Eosinophils # 0.7 10^3/uL (0.0-0.8); Eosinophils % 8.8 %; Hemoglobin 13.1 g/dL (11.7-16.6); Lymphocytes # 1.7 10^3/uL (0.8-4.8); Lymphocytes % 20.3 %; Mean Corpuscular HGB Conc 34.5 g/dL (30.0-36.0); Mean Corpuscular Hemoglobin 29.6 pg (28.0-34.0); Mean Corpuscular Volume 85.8 fl (80-94); Mean Platelet Volume 9.3 fL (7.4-10.4); Monocytes # 1.2 10^3/uL (0.2-0.9); Monocytes % 13.9 %; Neutrophils # 4.64 10^3/uL (1.8-7.7); Neutrophils % 55.3 %; Nucleated Red Blood Cells % 0 %; Platelet Count 207 10^3/cmm (130-400); Red Blood Count 4.43 10^6/uL (4.1-5.3); Red Cell Distribution Width 12.7 % (12.1-15.1); White Blood Count 8.4 10^3/uL (4.0-10.0)
[2022-03-02 04:51] LABS: Lactate (Lactic Acid level) 0.9 mmol/L (0.5-2.2)
[2022-03-02 04:53] LABS: Blood Urea Nitrogen 9 mg/dL (6-20); Calcium 8.6 mg/dL (8.5-10.5); Carbon Dioxide 24 mmol/L (22-29); Chloride 106 mmol/L (98-107); Glomerular Filtration Rate 109.4 mL/min (90-130); Glucose 98 mg/dL (65-115); Osmolality Calculated 289 mOsm/kg (285-295); Sodium 140 mmol/L (136-145)
[2022-03-02 04:59] LABS: Anion Gap 14.3 (5-19); Potassium 4.3 mmol/L (3.5-5.1)
[2022-03-02 06:00] VITALS: BP 123/55; PULSE 83; RESP 18; TEMP 36.7; O2SAT 97
--- NOTE | 2022-03-02 11:10 | P.PN_ITS ---
Subjective Subjective: Seen this morning. Patient is longer having diarrhea is doing a lot better compared to when I saw him yesterday. Patient was on Zosyn and IV metronidazole. Has been afebrile overnight. Rash is almost resolved as well. Vitals/I&O/Wt Last Vital Signs Temp 98.0 F 03/02/22 06:00 Pulse 83 03/02/22 06:00 Resp 18 03/02/22 06:00 BP 123/55 03/02/22 06:00 Pulse Ox 97 03/02/22 06:00 03/01/22 03/02/22 03/02/22 22:59 06:59 14:59 Intake Total 380 / 380 979.167 / 1359.167 Balance 380 / 380 979.167 / 1359.167 Weight last 48 hrs Weight 130.317 kg Physical Exam Narrative: General: Alert oriented x3, no acute distress Cardio: Regular rate rhythm, normal S1-S2, no murmurs Respiratory: Good bilateral air entry, no wheezes no rhonchi appreciated GI: Abdomen soft, nontender, nondistended, normoactive bowel sounds, improved abdominal exam compared to yesterday. Behavior: Appropriate and cooperative Extremities: no edema, no cyanosis, macular rash bilateral upper and lower extremities, including abdomen appears much better compared to yesterday and is almost resolved. Data : 03/02/22 04:02 03/02/22 04:02 Micro: Microbiology 02/28/22 15:57 Urine Culture - Final Urine,Clean Catch 02/28/22 17:25 Blood Culture - Preliminary Blood NEGATIVE TO DATE 02/28/22 17:25 Blood Culture - Preliminary Blood NEGATIVE TO DATE 02/28/22 17:19 Enteric Pathogens (PCR) - Final Stool Routine Collection Parasite Antigen Panel - Final 02/28/22 17:19 C.difficile Toxin B Gene (PCR) - Final Stool A&P Assessment and plan (1) Abdominal pain: Status: Acute (2) Diarrhea: Status: Acute (3) Rash: Status: Acute (4) Cannabis use disorder, severe, dependence: Status: Acute (5) Major depression, recurrent: Status: Acute (6) Depression with suicidal ideation: Status: Acute (7) Campylobacter diarrhea: Status: Acute Plan #Abdominal pain and diarrhea secondary to Campylobacter jejuni colitis #Macular rash bilateral upper and lower extremities, abdomen most likely sequelae of Campylobacter colitis ? Stool culture positive for Campylobacter ? Continue normal saline 125 cc/h ? Start GI soft diet ? Stop IV Zosyn and IV metronidazole. Labs are normalized. ? Continue on azithromycin department and milligrams daily for total of 7 days. ? Patient should follow-up with primary care doctor after discharge. Patient completed his advised antibiotic course. Should he develop worsening diarrhea or worsening abdominal pain he should seek medical attention. ? Tick panel pending however Lyme antibody negative. Rest of panel pending at this time. ? Continue calamine lotion and Benadryl for rash but I do hope that it will improve as staph Campylobacter colitis gets better. ? Stop IV fluids. ? Patient may be sent back to [facility] for further management of his psychiatric illnesses. -He will need close follow-up with primary after discharge. ? I will continue to follow patient in NPU #Depression, anxiety, suicidal ideation ? Management as per primary psychiatric team Full code Attestations Medical Necessity Statement*: Defer to primary team Coding Level of Care Code Acute First Assistant Manager for g Fwd Diagnoses Abdominal pain R10.9 Diarrhea R19.7 Rash R21 Cannabis use disorder, severe, dependence F12.20 Major depression, recurrent F33.9 Depression with suicidal ideation F32.A; R45.851 Campylobacter diarrhea A04.5
[2022-03-02] MEDS: azithromycin 250 mg Tablet 500 MG PO (12:09)
[2022-03-02 13:04] LABS: Lyme AB Screen <0.90 index
--- NOTE | 2022-03-02 15:47 | W.PM.NPUPNS ---
Subjective NPU Subjective: Patient presents today reporting that he feels much better. He is glad that he was here when this rash erupted allowing him to ultimately get the help he needed to manage this Campylobacter bacteria colitis. We had a discussion about consideration of a mood stabilizer now lately know the cause of the rash was not any medication he was given and he continues to report that he wanted to manage things without medication. But he also was wondering about whether opportunities or housing opportunities existed within the framework of the unit. He reports he is eating and sleeping better. Mental Status Exam MSE Comments: This is an obese white male with reddish beck in hospital scrubs with limited grooming and adequate eye contact. No abnormal movements except for mild psychomotor retardation. Cooperative with exam in no acute distress. Speech was normal rate and volume. Mood described as much better, affect is congruent. Thought process, mostly organized. Thought content: patient denies any suicidal or homicidal ideation, reports some paranoia and resolving persecutory delusions noted, and endorses lessening auditory and visual hallucinations. Attention and concentration are intact and memory appeared reliable but none were formally tested. He is alert and oriented three times. Insight and judgment are limited. Impulse control is impaired. Vitals/I&O/Wt Last Vital Signs Temp 98.0 F 03/02/22 06:00 Pulse 83 03/02/22 06:00 Resp 18 03/02/22 06:00 BP 123/55 03/02/22 06:00 Pulse Ox 97 03/02/22 06:00 03/02/22 03/02/22 14:59 22:59 Intake Total 2290 / 2290 Balance 2290 / 2290 Weight last 48 hrs Weight 130.317 kg Data NPU : 03/02/22 04:02 03/02/22 04:02 Micro: Microbiology 02/28/22 15:57 Urine Culture - Final Urine,Clean Catch Microbiology 02/28/22 15:57 Urine,Clean Catch Urine Culture - Final A&P Assessment and plan (1) Campylobacter diarrhea: Status: Acute (2) Abdominal pain: Status: Acute (3) Diarrhea: Status: Acute (4) Rash: Status: Acute (5) Cannabis use disorder, severe, dependence: Status: Acute (6) Major depression, recurrent: Status: Acute (7) Depression with suicidal ideation: Status: Acute (8) Hopelessness: Status: Acute Plan This is a 36 year old white male with a history of trauma and genetic loading for mental health and addiction issues who presents having been brought in due to being deemed a danger to his children, endorsing he is doing well without medications and wanting to continue without them. 1.? Continue without medications.? We will continue to discuss mood stabilizer if he would consider. 2.? Encourage individual, group and milieu therapy 3.? Continue q-15 minute check for safety 4.? Recommend sober living treatment at the highest level of care to which the patient is willing to commit. 5.? Appreciate hospitalist consult and patient transferred back to the unit. Involuntary Hold Information 96 Hour Hold: 96 Hour Involuntary Admission: No Attestations NPU Medical Necessity Statement*: Inpatient hospitalization is medically necessary and the clinically appropriate intervention at this time. We will monitor medications and make changes as indicated. Likely length of stay is 2-4 days. Coding Level of Care Code Acute Customer Complaint Clerk for g Fwd Diagnoses Campylobacter diarrhea A04.5 Abdominal pain R10.9 Diarrhea R19.7 Rash R21 Cannabis use disorder, severe, dependence F12.20 Major depression, recurrent F33.9 Depression with suicidal ideation F32.A; R45.851 Hopelessness R45.89
[2022-03-02 20:14] VITALS: BP 149/94; PULSE 100; RESP 18; O2SAT 95
[2022-03-03] MEDS: loperamide 2 mg Capsule PO (00:25)
[2022-03-03 06:00] VITALS: BP 149/93; PULSE 90; RESP 18; O2SAT 98
[2022-03-03] MEDS: azithromycin 250 mg Tablet 500 MG PO (13:58)
[2022-03-03 14:00] VITALS: BP 132/62; PULSE 74; RESP 16; TEMP 36.6; O2SAT 98
--- NOTE | 2022-03-03 15:44 | W.PM.NPUPNS ---
Subjective NPU Subjective: Patient presents today continuing to report feeling fine off of medication. He is trying to identify will be reasonable for his next place of residence and overall plan. We discussed the importance of him working with the treatment team on Saturday morning on possible options. We continue to discuss the place for pharmacology and treatment. Mental Status Exam MSE Comments: This is an obese white male with reddish beck in hospital scrubs with limited grooming and adequate eye contact. No abnormal movements except for mild psychomotor retardation. Cooperative with exam in no acute distress. Speech was normal rate and volume. Mood described as better, affect is congruent. Thought process, mostly organized. Thought content: patient denies any suicidal or homicidal ideation, reports some paranoia and resolving persecutory delusions noted, and endorses lessening auditory and visual hallucinations. Attention and concentration are intact and memory appeared reliable but none were formally tested. He is alert and oriented three times. Insight and judgment are limited. Impulse control is improving. Vitals/I&O/Wt Last Vital Signs Temp 97.8 F 03/03/22 14:00 Pulse 74 03/03/22 14:00 Resp 16 03/03/22 14:00 BP 132/62 03/03/22 14:00 Pulse Ox 98 03/03/22 14:00 Weight last 48 hrs Weight 130.317 kg Data NPU : 03/02/22 04:02 03/02/22 04:02 A&P Assessment and plan (1) Campylobacter diarrhea: Status: Acute (2) Abdominal pain: Status: Acute (3) Diarrhea: Status: Acute (4) Rash: Status: Acute (5) Cannabis use disorder, severe, dependence: Status: Acute (6) Major depression, recurrent: Status: Acute (7) Depression with suicidal ideation: Status: Acute (8) Hopelessness: Status: Acute Plan This is a 36 year old white male with a history of trauma and genetic loading for mental health and addiction issues who presents having been brought in due to being deemed a danger to his children, endorsing he is doing well without medications and wanting to continue without them. 1.? Continue without medications.? We will continue to discuss mood stabilizer if he would consider. 2.? Encourage individual, group and milieu therapy 3.? Continue q-15 minute check for safety 4.? Recommend sober living treatment at the highest level of care to which the patient is willing to commit. 5.? Appreciate hospitalist consult and patient transferred back to the unit. Involuntary Hold Information 96 Hour Hold: 96 Hour Involuntary Admission: No Attestations NPU Medical Necessity Statement*: Inpatient hospitalization is medically necessary and the clinically appropriate intervention at this time. We will monitor medications and make changes as indicated. Likely length of stay is 2-4 days. Coding Level of Care Code Acute Fine Artist for [facility] Fwd Diagnoses Campylobacter diarrhea A04.5 Abdominal pain R10.9 Diarrhea R19.7 Rash R21 Cannabis use disorder, severe, dependence F12.20 Major depression, recurrent F33.9 Depression with suicidal ideation F32.A; R45.851 Hopelessness R45.89
[2022-03-03] MEDS: OLANZapine 5 mg ODT PO (19:06)
[2022-03-03 20:16] VITALS: BP 138/76; PULSE 83; RESP 16; TEMP 36.7; O2SAT 91
[2022-03-04 06:00] VITALS: BP 138/80; PULSE 83; RESP 20; TEMP 36.6; O2SAT 97
--- NOTE | 2022-03-04 07:37 | W.PM.NPUPNS ---
Subjective NPU Subjective: Patient presents today reporting that he is trying his best to figure out what is best to do now. He continues to resist the plan for a medication feeling that he is better off of it. We agreed to talk to the social work team this morning to determine what is best future knight. He seems to be focused on trying to make sure he has an appointment and safe housing but also he is frustrated about the whole thing with DFS/CYS and his kids. Mental Status Exam MSE Comments: This is an obese white male with reddish beck in hospital scrubs with limited grooming and adequate eye contact. No abnormal movements except for mild psychomotor retardation. Cooperative with exam in no acute distress. Speech was normal rate and volume. Mood described as better, affect is congruent. Thought process, mostly organized. Thought content: patient denies any suicidal or homicidal ideation, no significant delusions reported or noted, and endorses lessening auditory and visual hallucinations. Attention and concentration are intact and memory appeared reliable but none were formally tested. He is alert and oriented x3. Insight and judgment are limited. Impulse control is improving. Vitals/I&O/Wt Last Vital Signs Temp 97.9 F 03/04/22 06:00 Pulse 83 03/04/22 06:00 Resp 20 H 03/04/22 06:00 BP 138/80 03/04/22 06:00 Pulse Ox 97 03/04/22 06:00 Weight last 48 hrs Weight 133.991 kg Data NPU : 03/02/22 04:02 03/02/22 04:02 A&P Assessment and plan (1) Campylobacter diarrhea: Status: Acute (2) Abdominal pain: Status: Acute (3) Diarrhea: Status: Acute (4) Rash: Status: Acute (5) Cannabis use disorder, severe, dependence: Status: Acute (6) Major depression, recurrent: Status: Acute (7) Depression with suicidal ideation: Status: Acute (8) Hopelessness: Status: Acute Plan This is a 36 year old white male with a history of trauma and genetic loading for mental health and addiction issues who presents having been brought in due to being deemed a danger to his children, endorsing he is doing well without medications and wanting to continue without them. 1.? Continue without medications.? We will continue to discuss mood stabilizer if he would consider. 2.? Encourage individual, group and milieu therapy 3.? Continue q-15 minute check for safety 4.? Recommend sober living treatment at the highest level of care to which the patient is willing to commit. 5.? Appreciate hospitalist consult and patient transferred back to the unit. Involuntary Hold Information 96 Hour Hold: 96 Hour Involuntary Admission: No Attestations NPU Medical Necessity Statement*: Inpatient hospitalization is medically necessary and the clinically appropriate intervention at this time. We will monitor medications and make changes as indicated. Likely length of stay is 1-3 days. Coding Level of Care Code Acute Culinary Manager for g Fwd Diagnoses Campylobacter diarrhea A04.5 Abdominal pain R10.9 Diarrhea R19.7 Rash R21 Cannabis use disorder, severe, dependence F12.20 Major depression, recurrent F33.9 Depression with suicidal ideation F32.A; R45.851 Hopelessness R45.89
[2022-03-04] MEDS: azithromycin 250 mg Tablet 500 MG PO (09:05)
[2022-03-04 13:55] VITALS: BP 150/89; PULSE 105; RESP 17; TEMP 36.6; O2SAT 95
[2022-03-04] MEDS: trazodone 50 mg Tablet PO (21:56)
[2022-03-04 21:57] VITALS: BP 158/98; PULSE 86; RESP 20; TEMP 36.8; O2SAT 96
[2022-03-05 06:00] VITALS: BP 134/89; PULSE 68; RESP 20; TEMP 36.7; O2SAT 98
[2022-03-05] MEDS: azithromycin 250 mg Tablet 500 MG PO (11:45)
[2022-03-05 14:00] VITALS: BP 153/99; PULSE 90; RESP 20; TEMP 36.2; O2SAT 98
[2022-03-05] MEDS: OLANZapine 5 mg ODT PO (16:19)
--- NOTE | 2022-03-05 17:27 | W.PM.NPUPNS ---
Subjective NPU Subjective: Patient presents today reporting that he is working with the treatment team on possible [facility] in the morning. Reviewed the process of acceptance and is looking promising. He continues to talk about the same issues especially DFS and his children. Otherwise he denies any changes or concerns and continues to deny wanting to start medication. Mental Status Exam MSE Comments: This is an obese white male with reddish beck in hospital scrubs with limited grooming and adequate eye contact. No abnormal movements except for mild psychomotor retardation. Cooperative with exam in no acute distress. Speech was normal rate and volume. Mood described as better, affect is congruent. Thought process, mostly organized. Thought content: patient denies any suicidal or homicidal ideation, no significant delusions reported or noted, and endorses lessening auditory and visual hallucinations. Attention and concentration are intact and memory appeared reliable but none were formally tested. He is alert and oriented x3. Insight and judgment are limited. Impulse control is improving. Vitals/I&O/Wt Last Vital Signs Temp 97.8 F 03/05/22 21:29 Pulse 94 03/05/22 21:29 Resp 20 H 03/05/22 21:29 BP 162/95 03/05/22 21:29 Pulse Ox 93 03/05/22 21:29 Weight last 48 hrs Weight 133.991 kg Data NPU : 03/02/22 04:02 03/02/22 04:02 Micro: Microbiology 02/28/22 17:25 Blood Culture - Final Blood NO GROWTH AFTER 5 DAYS 02/28/22 17:25 Blood Culture - Final Blood NO GROWTH AFTER 5 DAYS Microbiology 02/28/22 17:25 Blood Blood Culture - Final NO GROWTH AFTER 5 DAYS 02/28/22 17:25 Blood Blood Culture - Final NO GROWTH AFTER 5 DAYS A&P Assessment and plan (1) Campylobacter diarrhea: Status: Acute (2) Abdominal pain: Status: Acute (3) Diarrhea: Status: Acute (4) Rash: Status: Acute (5) Cannabis use disorder, severe, dependence: Status: Acute (6) Major depression, recurrent: Status: Acute (7) Depression with suicidal ideation: Status: Acute (8) Hopelessness: Status: Acute Plan This is a 36 year old white male with a history of trauma and genetic loading for mental health and addiction issues who presents having been brought in due to being deemed a danger to his children, endorsing he is doing well without medications and wanting to continue without them. 1.? Continue without medications.? We will continue to discuss mood stabilizer if he would consider. 2.? Encourage individual, group and milieu therapy 3.? Continue q-15 minute check for safety 4.? Recommend sober living treatment at the highest level of care to which the patient is willing to commit. 5.? Tentative plan for discharge in the morning Involuntary Hold Information 96 Hour Hold: 96 Hour Involuntary Admission: No Attestations NPU Medical Necessity Statement*: Inpatient hospitalization is medically necessary and the clinically appropriate intervention at this time. We will monitor medications and make changes as indicated. Likely length of stay is 1-2 days. Coding Level of Care Code Acute Commissioning Specialist for g Fwd Diagnoses Campylobacter diarrhea A04.5 Abdominal pain R10.9 Diarrhea R19.7 Rash R21 Cannabis use disorder, severe, dependence F12.20 Major depression, recurrent F33.9 Depression with suicidal ideation F32.A; R45.851 Hopelessness R45.89
[2022-03-05 21:29] VITALS: BP 162/95; PULSE 94; RESP 20; TEMP 36.6; O2SAT 93
[2022-03-06 06:00] VITALS: BP 167/109; PULSE 78; RESP 17; TEMP 36.6; O2SAT 99
[2022-03-06] MEDS: azithromycin 250 mg Tablet 500 MG PO (09:03)
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
[2022-03-06 11:12] VITALS: BP 167/109; PULSE 78; RESP 17; TEMP 36.6; O2SAT 99
[2022-03-06 18:08] LABS: RMSF IGG NOT DETECTED; RMSF IGM NOT DETECTED
[2022-03-07 19:53] LABS: E. Chaffeensis AB IGG <1:64; E. Chaffeensis AB IGM <1:20
== END 2022-03-06 12:00 | disposition home or self-care (01) | DRG 885 ==
LOC: ER 22:19 → NP 02-27 06:13 → MEDSURG 03-01 16:57 → NP 03-02 14:28
PROVIDERS: Internal Medicine; Admitting Provider Psychiatry & Neurology Psychiatry; Emergency Provider Emergency Medicine; Visit Provider Psychiatry & Neurology Psychiatry
DX: F33.9 Major depressive disorder, recurrent, unspecified (principal); R45.851 Suicidal ideations; A04.5 Campylobacter enteritis; Z87.891 Personal history of nicotine dependence; F12.20 Cannabis dependence, uncomplicated; Z91.14 Patient's other noncompliance with medication regimen; Z81.8 Family history of other mental and behavioral disorders; Z59.00 Homelessness unspecified
CPT/HCPCS: 36415; 74018; 74177; 80048; 80053; 80306; 80307; 81001; 83605; 83630; 83690; 83735; 85025; 86618; 86666; 86757; 87040; 87086; 87493; 87506; 97150; 97165; 99285; J2543; J7030; Q0144; Q0162; Q9967; S0030

== ENCOUNTER → 2022-05-16 13:45 | Outpatient (BNVA) | payer OTHER, SELFPAY | PROVIDERS: PCP Family Medicine; Visit Provider Registered Nurse | DX: Z79.899 Other long term (current) drug therapy (principal) | CPT/HCPCS: 80053; 80061; 83036; 84443; 85025 ==

== ENCOUNTER → 2022-07-15 17:50 | Outpatient (BNVA) | payer MEDICAID, SELFPAY | PROVIDERS: PCP Family Medicine; Visit Provider Family Medicine | DX: N39.0 Urinary tract infection, site not specified (principal); K40.90 Unilateral inguinal hernia, without obstruction or gangrene, not specified as recurrent; R30.0 Dysuria | CPT/HCPCS: 81000 ==

== ENCOUNTER 2022-08-14 09:43 | Outpatient (CLI) | payer OTHER, MEDICAID, SELFPAY ==
--- NOTE | 2022-08-14 11:00 | CT_ITS ---
WS: [id number] EXAMINATION: CT abdomen pelvis wo con [id number] REASON FOR EXAM: Left sided groin pain COMPARISON: 02/28/2022. TOTAL EXAM DLP: 1401.[address] scans at [facility] use at least one of these dose optimization techniques: automat ed exposure control; mA and/or kV adjustment per patient size (includes targeted exams where dose is matched to clinical indication); or iterative reconstruction. FINDINGS: LOWER THORAX: The lung bases are clear. LIVER: Normal in appearance as visualized. BILIARY: Normal appearance of the gallbladder with no biliary ductal dilatation. as visualized. SPLEEN: Normal in appearance as visualized. PANCREAS: Normal in appearance ADRENALS: Normal in appearance KIDNEYS: Normal renal outlines. No sign of hydronephrosis. GI TRACT: The bowel is normal in caliber. No free intraperitoneal air is present. There are scattered sigmoid diverticula. APPENDIX: Normal in appearance ABDOMINAL WALL: Unremarkable RETROPERITONEUM/LYMPH/MESENTERIC NODES: No retroperitoneal or mesenteric lymphadenopathy identified. VESSELS: The great vessels of the abdomen are unremarkable. PELVIC ORGANS: Bladder is normal in appearance.. BONES: The visualized osseous structures are intact. No suspicious osteolytic or osteoblastic lesions . . CT/CT abdomen pelvis wo con [id number] IMPRESSION: NO ACUTE INTRA-ABDOMINAL FINDINGS DIVERTICULOSIS.
== END 2022-08-14 09:44 | disposition home or self-care (01) ==
LOC: RAD 09:44
PROVIDERS: PCP Family Medicine; Visit Provider Family Medicine
DX: K40.90 Unilateral inguinal hernia, without obstruction or gangrene, not specified as recurrent (principal)
CPT/HCPCS: 74176

== ENCOUNTER 2022-10-12 01:29 | Inpatient (IN) | payer OTHER, MEDICAID, SELFPAY ==
[2022-10-12] VITALS (8 sets, daily range): BP systolic 146–170; BP diastolic 84–105; PULSE 90–102; RESP 15–20; TEMP 36.7–37.4; O2SAT 94–98; BMI 42.7
--- NOTE | 2022-10-12 01:49 | P.HP_ITS ---
Providers/Chief Complaint Admitting Physician: Jeancarlos Corado MD Chief Complaint: Nephrotic Symptoms History of Present Illness Sebas Bush is a 37 year old male with history of hypertension, presented from [facility] for concern of glomerular disease. Patient is stating that he has been noticing urinary frequency, pink-colored urine for last 2 to 3 months, he does not carry any diagnosis of diabetes, he does not take any medication at home. In last 2 weeks he used penicillin and amoxicillin for his tooth infection. Patient is stating that penicillin was just sitting in his medicine cabinet which he used however his symptoms were not getting better then he went to PCP and started using amoxicillin this Saturday. No fever, nausea, vomiting, chest pain. Of note, he has been noticing varicocele left testicular area has seen urologist as well. He also has left groin hernia which Dr. Parnell has evaluated. He is awaiting approval from his insurance in order to get the surgery done. CT scan from outside facility showed some fat stranding around the kidneys and the left ureter however no signs of hydronephrosis or pyelonephritis, Patient was given 2 L fluid challenge at [facility] which worsened his creatinine from 3.6 to 4 Urinalysis showing proteinuria GFR 15 creatinine 4.3 Globin A1c 6.1 Hematuria, proteinuria, hepatitis panel is negative Requested ANCA screen and DENNISE panel Review of Systems Const: Reports: change in weight; Denies: chills Eyes: Denies: change in vision ENMT: Denies: throat pain Card: Reports: swelling of feet/ankles; Denies: chest pain Resp: Denies: dyspnea GI: Denies: abdominal pain : Reports: urinary frequency; Denies: flank pain Musc: Denies: neck pain Skin/Breast: Denies: rash Neuro: Denies: headache(s) Psych: Denies: anxiety Endo: Denies: polyuria [place]/Lymph: Denies: easy bruising All/Imm: Denies: urticaria Medications/Allergies Home Medications Medication Instructions Recorded Confirmed Last Taken Type Bladder Wrack PO DAILY 10/12/22 10/01/22 04:15 History Bosewalia PO DAILY 10/12/22 10/08/22 04:15 History Devil's Claw PO DAILY 10/12/22 10/08/22 04:15 History [place] Cline PO DAILY 10/12/22 10/08/22 04:15 History Zeolite PO DAILY 10/12/22 10/08/22 04:15 History ashwagandha root extract PO DAILY 10/12/22 10/08/22 04:15 History burdock root PO DAILY 10/12/22 10/08/22 04:15 History grape seed extract PO DAILY 10/12/22 10/08/22 04:15 History sarwat extract 500 mg capsule 500 mg PO DAILY 10/12/22 10/12/22 10/08/22 04:15 History slippery elm bark PO DAILY 10/12/22 10/08/22 04:15 History Allergies Allergy/AdvReac Type Severity Reaction Status Date / Time Pork/Porcine Containing Allergy Unknown Unverified 10/12/22 02:18 Products PFSH Acute PFSH: Medical History (Updated 10/12/22 @ 07:33 by Jeancarlos Corado MD) Bleeding hemorrhoids Cannabis use disorder, moderate, in early remission, dependence Cannabis use disorder, severe, dependence Depression Hard stool Marital/partner relational problem Psychiatric care Psychiatric care Surgical History Hx of colonoscopy with polypectomy [place] 3-4 yrs ago Family History Denies family history of CAD (coronary artery disease) Social History Smoking and tobacco status: former smoker Alcohol intake: current Alcohol intake frequency: holidays/special occasions only Physical Exam Narrative: Young male Morbidly obese Currently on room air Pleasant and cooperative Abdomen soft Trace edema of legs Inguinal hernia noted Patient also has left-sided varicocele Abdomen distended nontender S1, S2 No audible stridor or wheezing Does not look dehydrated is at the bedside Appropriate mood and affect Data 10/12/22 04:42 10/12/22 04:42 A&P Assessment and plan (1) Indirect left inguinal hernia: (2) Major depression, recurrent: (3) Proteinuria: (4) Acute renal failure: (5) Hypertension: (6) Morbidly obese: (7) Left varicocele: Plan 37-year-old male without previous history of diabetes, presented with chief complaint of urinary frequency, urgency, pink-colored urine, left-sided testicular varicocele, inguinal hernia, fatigue, failed fluid challenge with worsening creatinine from 3.6 to 4, recently used penicillin and amoxicillin for dental infection Acute renal failure Creatinine 4.3 GFR 15 Check hemoglobin A1c Hepatitis panel ANCA Urine protein, creatinine We will consult nephro, concern for glomerular disease Patient is morbidly obese, history of cannabis use as well Check triglyceride level High phosphorus noted, magnesium 2.1 Hypertension: We will add low-dose Lasix and amlodipine Left-sided varicocele, fat stranding noted around left ureter, no signs of hydronephrosis, Nephrotic syndrome related? Renal vein thrombosis to be ruled out Inguinal hernia follows up with Dr. Parnell awaiting insurance approval to get the surgery done Full code Regular diet DVT prophylaxis on board Attestations Medical Necessity Statement*: Anticipating than 2 midnights for work-up of proteinuria Time Spent in Patient Care: 40 Coding Level of Care Code Acute Code for Chg Fwd Diagnoses Indirect left inguinal hernia K40.90 Major depression, recurrent F33.9 Proteinuria R80.9 Acute renal failure N17.9 Hypertension I10 Morbidly obese E66.01 Left varicocele I86.1
[2022-10-12] MEDS: morphine IR 15 mg Tablet PO (03:31)
[2022-10-12 05:34] LABS: Basophils % 0.4 %; Eosinophils # 0.1 10^3/uL (0.0-0.8); Eosinophils % 1.1 %; Hematocrit 38.5 % (42.0-52.0); Hemoglobin 12.5 g/dL (11.7-16.6); Lymphocytes # 1.2 10^3/uL (0.8-4.8); Lymphocytes % 13.6 %; Mean Corpuscular HGB Conc 32.5 g/dL (30.0-36.0); Mean Corpuscular Hemoglobin 28.8 pg (28.0-34.0); Mean Corpuscular Volume 88.7 fl (80-94); Mean Platelet Volume 8.8 fL (7.4-10.4); Neutrophils # 6.61 10^3/uL (1.8-7.7); Neutrophils % 73.1 %; Nucleated Red Blood Cells % 0 %; Platelet Count 186 10^3/cmm (130-400); Red Blood Count 4.34 10^6/uL (4.1-5.3); Red Cell Distribution Width 12.5 % (12.1-15.1)
[2022-10-12 05:54] LABS: Urine Creatinine 37 mg/dL (39-259); Urine Random Sodium 30 mmol/L
[2022-10-12 05:59] LABS: Creatinine Urine, Random 38 mg/dL (39-259); Microalbumin Random Urine 15 ug/dL (0-20)
[2022-10-12 06:01] LABS: Estmated Average Glucose 128; Hemoglobin A1C 6.1 % (4.0-6.0)
[2022-10-12 06:03] LABS: Add Urine Microscopic? YES; Bilirubin Urine Neg (Negative); Blood Urine 2+ (Negative); Glucose Urine UA Norm (Normal); Ketones Urine Negative (Negative); Leukocyte Esterase Urine Negative (Negative); Nitrate Urine Negative (Negative); Protein Urine Trace (Negative); Specific Gravity, Urine 1.005 (1.005-1.030); Urine Appearance Clear (CLEAR); Urine Color Colorless (Yellow); Urobilinogen Urine Norm (Negative); pH Urine 5 (5-7)
[2022-10-12 06:04] LABS: Add Urine Culture? No; Renal Epithelial Cells Urine 0-1 /hpf
[2022-10-12 06:06] LABS: Anion Gap 16.1 (5-19); Blood Urea Nitrogen 31 mg/dL (6-20); C Reactive Protein 91.7 mg/L (0.0-4.9); Calcium 8.9 mg/dL (8.5-10.5); Carbon Dioxide 22 mmol/L (22-29); Chloride 105 mmol/L (98-107); Glomerular Filtration Rate 15.6 mL/min (90-130); Glucose 132 mg/dL (65-115); Magnesium 2.1 mg/dL (1.7-2.3); Osmolality Calculated 296 mOsm/kg (285-295); Phosphorus 4.8 mg/dL (2.5-4.5); Potassium 4.1 mmol/L (3.5-5.1); Sodium 139 mmol/L (136-145); Thyroid Stimulating Hormone 1.77 uIU/mL (0.27-4.20)
[2022-10-12 06:11] LABS: Hepatitis A Antibody IgM Non-Reactive (Nonreactive); Hepatitis B Core AB, Total Non-Reactive (Nonreactive); Hepatitis B Surface AB 122.3 (11.5-1000); Hepatitis B Surface Antigen Non-Reactive (Nonreactive); Hepatitis C Virus Antibody Non-Reactive (Nonreactive)
[2022-10-12 06:19] LABS: Microalbum Creatinine Ratio Ur 395 mg/dL (0-20)
[2022-10-12 06:50] LABS: Vitamin B12 372 pg/mL (232-1245)
[2022-10-12] MEDS: ondansetron 2 mg/ML SDV 2 mL 4 MG IVP (06:52)
[2022-10-12 08:32] LABS: Albumin Level 3.5 g/dL (3.5-5.2); Chol HDL Ratio 3.69 mg/dL (1.0-5.00); Cholesterol 118 mg/dL (0-200); Complement C3 142 mg/dL (90-180); HDL Cholesterol 32 mg/dL (60-100); LDL Cholesterol Calculated 62 mg/dL (50-129); LDL HDL Ratio 1.94 RATIO (0.00-3.22); Triglycerides 118 mg/dL (0-150)
[2022-10-12] MEDS: FUROsemide 20 mg Tablet PO (08:48)
[2022-10-12] MEDS: amlodipine 5 mg Tablet PO ×2 (08:48→13:31)
[2022-10-12] MEDS: sennosides-docusate Tablet 1 TAB PO (08:48)
[2022-10-12 08:58] LABS: HIV 1 & 2 Antibody Non-Reactive (Non-Reactiv); HIV 1 & 2 Antigen Non-Reactive (Non-Reactiv)
[2022-10-12 09:06] LABS: Eosinophil Urine No Eosinophils Seen
[2022-10-12 09:43] LABS: Amphetamines Screen Urine Negative (Negative); Barbiturates Screen Urine Negative (Negative); Benzodiazepines Screen Urine Negative (Negative); Cocaine Screen Urine Negative (Negative); Opiate Screen Urine Positive (Negative); PCP Screen Urine Negative (Negative); THC Screen Urine Negative (Negative)
--- NOTE | 2022-10-12 11:46 | PC.CHAP ---
Pastoral Care Encounter/Spiritual Assessment Type of Contact [] Declined route sales specialist visit [] Patient/Family/Request visit [] Outpatient visit [] Follow-up visit [] Physician referral [] Code/Alert [x] Routine visit [] Staff referral [] Actively dying [] Patient sleeping [x] Family support [] [] Out of room [] Palliative care [] [] Receiving care in room [] Pre-surgical visit [] Trauma [] Long length of stay [] ICU visit [] Other: Relational/Emotional Strength [x] Patient feels connected with others/family/visitors/staff [] Distress [] Loneliness/isolation [] Abandonment Spirituality of Patient [x] Person of Nedra [] Attends Orthodoxy of their Nedra [x] Believes in Prayer [] Reads Bible or Yarsani materials [] There are Spiritual issues to be addressed Digester Capper Interventions [x] Prayer [] Active listening [] Non-anxious presence [] Spiritual/emotional support [] Crisis/trauma care [] Spiritual counseling [] Bereavement support [] Provided bereavement packet [] Provided Bible/devotional materials [] Provided toy/stuffed animal, coloring book to patient or family member [] Provided Communion [] Anointing/[place] [] Salvation [x] Completed spiritual assessment [] Other: Impact on Illness or Injury [] Angry [] Fearful [] Anxious [] Often cries [] Exhaustion [] Unable to work [] Unable to attend uatsdin [] Unable to walk/stand [] Unable to read [] Unable to drive [] Unable to eat/drink [] Unable to sleep [] Unable to be with family [] Patient intubated [] Other: Summary Time spent with patient 15 min
--- NOTE | 2022-10-12 12:33 | P.CONIM_ITS ---
Providers/Reason For Consult Consulting Physician/Specialty*: Tatum Ascencio DO, telenephrology Verbal consent for telemedicine consult obtained. Reason for Consult*: Acute kidney injury Requesting Physician: David Motta Attending Physician: David Motta History of Present Illness History of Present Illness Sebas Bush is a 37 year old male transferred from another hospital. Reports intermittent gross hematuria for 2-3 months. States he was evaluated by primary and urology. + chronic left groin pain related to inguinal hernia and vericocele. States only pain medication he takes is acetaminophen. Taking several herbal supplements. Treated with penicillin for tooth infection. Denies rash, fever. + constipation No family history of renal disease Serum Cr 0.6 mg/dL 05/2022 Medications/Allergies Home Medications Medication Instructions Recorded Confirmed Last Taken Type Bladder Wrack 1 tab PO DAILY 10/12/22 10/12/22 Unknown History Bosewalia 1 tab PO DAILY 10/12/22 10/12/22 10/08/22 04:15 History Devil's Claw 1 tab PO DAILY 10/12/22 10/12/22 Unknown History Zeolite 1 tab PO DAILY 10/12/22 10/12/22 Unknown History ashwagandha root extract 1 tab PO DAILY 10/12/22 10/12/22 Unknown History sarwat extract 500 mg capsule 500 mg PO DAILY 10/12/22 10/12/22 Unknown History slippery elm bark 1 tab PO DAILY 10/12/22 10/12/22 Unknown History Allergies Allergy/AdvReac Type Severity Reaction Status Date / Time Pork/Porcine Containing Allergy Unknown Verified 10/12/22 08:38 Products Current Medications Generic Name Dose Route Start Last Admin Trade Name Freq PRN Reason Stop Dose Admin Amlodipine Besylate 5 mg 10/12/22 07:40 10/12/22 08:54 Amlodipine 5 Mg Tablet PO Not Given DAILY OUSMANE Furosemide 20 mg 10/12/22 08:00 10/12/22 08:48 Furosemide 20 Mg Tablet PO 20 mg DAILY@0800 OUSMANE Administration Ondansetron HCl 4 mg 10/12/22 01:49 10/12/22 06:52 Ondansetron 2 Mg/Ml Sdv 2 Ml IVP 4 mg Q6H PRN Administration NAUSEA AND VOMITING Senna/Docusate Sodium 1 tab 10/12/22 09:00 10/12/22 08:48 Sennosides-Docusate Tablet PO 1 tab DAILY OUSMANE Administration PFSH Acute PFSH: Medical History Bleeding hemorrhoids Cannabis use disorder, moderate, in early remission, dependence Cannabis use disorder, severe, dependence Depression Hard stool Marital/partner relational problem Psychiatric care Psychiatric care Surgical History Hx of colonoscopy with polypectomy [place] 3-4 yrs ago Family History Denies family history of CAD (coronary artery disease) Social History Smoking and tobacco status: former smoker Alcohol intake: current Alcohol intake frequency: holidays/special occasions only Vitals/I&O/Wt Last Vital Signs Temp 98.1 F 10/12/22 03:28 Pulse 90 10/12/22 12:00 Resp 15 10/12/22 12:00 BP 170/100 10/12/22 12:30 Pulse Ox 97 10/12/22 12:00 O2 Del Method 10/12/22 05:00 10/11/22 10/12/22 10/12/22 22:59 06:59 14:59 Intake Total 600 / 600 Output Total 125 / 125 Balance 475 / 475 Weight last 48 hrs Weight 146.42 kg Weight 147.1 kg Physical Exam Const: COMMON NORMALS: no acute distress, healthy appearing and alert Eye: SCLERA: sclerae normal Extremity: COMMON NORMALS: no pedal edema Neuro: SENSORIUM/ORIENTATION: Yes alert Data 10/12/22 04:42 10/12/22 04:42 Other Labs: urinalysis 2+ blood, 5-10 RBC, no WBC, trace albumin, urine albumin/Cr ratio 395 mg/g LFT, hepatitis serology, complements normal, CRP 91, HIV neg Ca 8.9, Phos 4.8, Mg 2.1 CT Abd/Pel: My impression: VERBAL REPORT FROM RN READING WRITTEN RESULT CT ABD WITH CONTRAST 10/11/22: + perinephric stranding , right kidney hyperemia, enlarged prostate Radiologist's impression: 08/14/2022 ADRENALS: Normal in appearance KIDNEYS: Normal renal outlines.? No sign of hydronephrosis. Other data: Seen and examined via telemedicine with assistance of RN at bedside A&P Assessment and plan (1) Acute kidney injury: Plan 1. Acute kidney injury (process developed after May 2022) associated with patient reported 2-3 months gross hematuria. Minimal proteinuria. Complements normal. No eosinophilia or pyuria. IReceived IV contrast yesterday (serum Cr 3.6 precontrast). Documented urine output no accurate. No evidence of UTI. Laboratory testing including DENNISE, ANCA, SPEP, K/L, CK pending. 2. Hypertension. Agree with additional of amlodipine. If second agent needed suggest hydralazine or metoprolol (avoid ACEi/ARB) I had a detailed discussion with Sebas. Definitive diagnosis will require renal biopsy. His weight will make procedure challenging. Recommend referral to center who can perform renal biopsy. If renal function worsens, can begin empiric steroids. Bladder scan, treat constipation. Discussed with hopsitalist. Consult Attestations Medical Necessity Statement: see above Time Spent in Patient Care: Greater than 35 minutes Coding Level of Care Code Acute Code for Chg Fwd Diagnoses Acute kidney injury N17.9
--- NOTE | 2022-10-12 12:59 | PM.PN ---
Subjective Subjective: Has been having some pain in his lower back although that is something he is been dealing with for a long time. Having some pink/red urine. Has been dealing with quite severe constipation over the last at least 3 days. Has taken probiotics. Discussed with him risk of constipation with probiotics. Yesterday finally had first bowel movement. Vitals/I&O/Wt Last Vital Signs Temp 98.1 F 10/12/22 03:28 Pulse 90 10/12/22 12:00 Resp 15 10/12/22 12:00 BP 170/100 10/12/22 12:30 Pulse Ox 97 10/12/22 12:00 O2 Del Method 10/12/22 05:00 10/11/22 10/12/22 10/12/22 22:59 06:59 14:59 Intake Total 600 / 600 Output Total 125 / 125 Balance 475 / 475 Weight last 48 hrs Weight 146.42 kg Weight 147.1 kg Physical Exam Narrative: at bedside Const: COMMON NORMALS: patient oriented x3 and alert GENERAL APPEARANCE: cooperative NUTRITIONAL APPEARANCE: obese ORIENTATION/CONSCIOUSNESS: Yes awake HENMT: COMMON NORMALS: oropharynx normal Neck/C-Spine: COMMON NORMALS: no JVD Resp: COMMON NORMALS: normal respiratory effort and clear to auscultation bilaterally AUSCULTATION: clear to auscultation bilaterally Cardio: COMMON NORMALS: no JVD, regular rhythm, S1 normal heart sound present, S2 normal heart sound present and No murmurs present (Cardio) RHYTHM: regular rhythm HEART SOUNDS: S1 normal heart sound present and S2 normal heart sound present GI: COMMON NORMALS: Normal to inspection, nondistended, normoactive bowel sounds present and Soft to palpation PALPATION: Yes Soft to palpation and Yes Tenderness to palpation present (GI) (Mild diffuse discomfort) Extremity: COMMON NORMALS: no joint enlargement and no pedal edema Neuro: COMMON NORMALS: patient oriented x3 and moves all extremities SENSORIUM/ORIENTATION: Yes alert Skin: COMMON NORMALS: no rashes or lesions noted GENERAL SKIN EXAM: no rashes or lesions noted Data 10/12/22 04:42 10/12/22 04:42 A&P Assessment and plan (1) Acute renal failure: Appreciate nephrology assessment. Intrinsic renal failure by Ester. Microalbumin to creatinine ratio 395. Prediabetes with A1c 6.1. Follow-up CK due to muscle aches. Denies any significant overexertion. Denies NSAID use. Has been taking some acetaminophen. Is on a number of herbal medicines. We will check heavy metals panel. Reports history of Campylobacter infection in February. Check check LDH, haptoglobin, reticulocyte for hemolysis. Follow-up autoimmune tests w complement. Renal doppler Consideration of glomerulonephritis. Recheck renal function. Consider biopsy inpatient (would require transfer) vs outpatient. Lipid profile relatively okay. Treat hypertension, additional dose of amlodipine. Continue amlodipine daily. Discontinue bladder wrack as bladder wrack harvested from polluted [place] may cause nephrotoxicity with presence of heavy metals including arsenic, cadmium, mercury. It can also cause hemorrhagic cystitis. Hemolytic anemia and abdominal pain were reported following ingestion of ashwagandha/mucuna pills containing high amounts of lead Consider discontinuation of bosewalia due to constipation and risk of bezoar formation. Please stop the devils claw due to hypertension and constipation with risk of worsening high blood pressure, risk of intestinal obstruction. Please stop zeolite due to aluminum contents. (2) Indirect left inguinal hernia: Follow-up with surgery. (3) Major depression, recurrent: (4) Proteinuria: (5) Hypertension: Additional dose amlodipine. (6) Morbidly obese: (7) Left varicocele: Plan 37-year-old male without previous history of diabetes, presented with chief complaint of urinary frequency, urgency, pink-colored urine, left-sided testicular varicocele, inguinal hernia, fatigue, failed fluid challenge with worsening creatinine from 3.6 to 4, recently used penicillin and amoxicillin for dental infection Left-sided varicocele, fat stranding noted around left ureter, no signs of hydronephrosis, Attestations Medical Necessity Statement*: Continue admission for cyst management of new BRIAN in a young gentleman without history of kidney disease. Coding Level of Care Code Acute Code for Chg Fwd Diagnoses Acute renal failure N17.9 Indirect left inguinal hernia K40.90 Major depression, recurrent F33.9 Proteinuria R80.9 Hypertension I10 Morbidly obese E66.01 Left varicocele I86.1
[2022-10-12] MEDS: bisacodyl 10 mg Supp PR (13:31)
[2022-10-12 13:34] LABS: Hematocrit 39.6 % (42.0-52.0); Retic Production Index 1.19; Reticulocyte % 1.2 % (0.5-2.0)
--- NOTE | 2022-10-12 13:35 | USR_ITS ---
PROCEDURE INFORMATION: Exam: US Duplex Artery and Vein of the Abdominal and/or Reproductive Organs, Complete Kidneys Exam date and time: 10/12/2022 4:12 PM Age: 37 years old Clinical indication: Abdominal or pelvic symptoms: HTN; Additional info: Assess for renal vein thrombosis, or ra stenosis TECHNIQUE: Imaging protocol: Real-time duplex ultrasound scan of the arterial and venous flow with color Doppler flow and spectral waveform analysis with image documentation. Complete duplex exam focused on the kidneys. Duplex exam was performed to evaluate for vascular conditions. COMPARISON: CT abdomen pelvis w con* [id number] 10/11/2022 5:12 PM FINDINGS: Right kidney: The right kidney measures 16.1 cm in its longest dimension. There is no evidence for hydronephrosis, solid or cystic masses. Arterial flow is documented within the right kidney with color Doppler and duplex waveform sonography. PSV 118 cm/s, RI 0.72 in the superior pole. PSV 118 cm/s and RI 0.69 for the mid right kidney . Right renal hilar artery PSV 128 cm/s, RI 0.68. PSV 58.1 cm/s, RI 0.73 for the inferior pole. Right renal artery: Normal duplex of the renal artery. Duplex waveforms are within normal limits. The right renal artery PSV is 189 cm/s, RI 0.68. No hemodynamically significant stenosis. Right interlobar/arcuate arteries: Resistive indices as described above. Right renal vein: Patent,The right renal vein flow 53.2 cm/s. Left kidney: The left kidney measures 15.3 cm in its greatest dimension. There is no evidence for cystic or solid masses. There is no evidence for hydronephrosis. Arterial flow is documented with color Doppler and duplex waveform sonography. Superior pole PSV 66.7 cm/s, RI 0.64. Mid left kidney PSV 59.8 cm/s, RI 0.69. Renal hilum PSV 98.3 cm/s, RI 0.71. Lower pole PSV 55.5 cm/s, 0.62. Left renal artery: Normal duplex of the renal artery. Duplex waveforms are within normal limits. The left renal artery PSV 195 cm/s, RI 0.72. No hemodynamically significant stenosis. Left interlobar/arcuate arteries: Resistive indices as described above. Left renal vein: Patent .The left renal vein flow 106 cm/s. Aorta: Aortic PSV 130 cm/s. US/CV renal doppler [id number] IMPRESSION: Pulsatile arterial flow is documented within the kidneys bilaterally. There is slightly decreased renal blood flow documented within the left kidney.
[2022-10-12 13:46] LABS: Creatine Phosphokinase 87 U/L (39-308)
[2022-10-12 13:47] LABS: Lactate Dehydrogenase 232 U/L (135-225)
[2022-10-12 14:17] LABS: LAB Peripheral Smear Sent for Review
[2022-10-12] MEDS: polyethylene glycol 3350 Pkt 17 gm PO (17:14)
[2022-10-13] VITALS: BP 137/93; PULSE 92; RESP 20; TEMP 36.7; O2SAT 93
[2022-10-13 04:56] LABS: Basophils # 0.1 10^3/uL (0.0-0.1); Basophils % 0.6 %; Eosinophils # 0.2 10^3/uL (0.0-0.8); Eosinophils % 1.9 %; Hematocrit 41.2 % (42.0-52.0); Hemoglobin 13.3 g/dL (11.7-16.6); Lymphocytes # 1.6 10^3/uL (0.8-4.8); Lymphocytes % 17.3 %; Mean Corpuscular HGB Conc 32.3 g/dL (30.0-36.0); Mean Corpuscular Hemoglobin 28.4 pg (28.0-34.0); Mean Platelet Volume 8.9 fL (7.4-10.4); Monocytes # 1.4 10^3/uL (0.2-0.9); Monocytes % 14.6 %; Neutrophils # 6.02 10^3/uL (1.8-7.7); Neutrophils % 64.5 %; Nucleated Red Blood Cells % 0 %; Platelet Count 185 10^3/cmm (130-400); Red Blood Count 4.68 10^6/uL (4.1-5.3); Red Cell Distribution Width 12.5 % (12.1-15.1); White Blood Count 9.3 10^3/uL (4.0-10.0)
[2022-10-13 05:16] LABS: Alanine Aminotransferase 20 U/L (0-41); Albumin Level 3.3 g/dL (3.5-5.2); Alkaline Phosphatase 54 U/L (40-130); Anion Gap 16.2 (5-19); Aspartate Amino Transferase 13 U/L (0-40); Blood Urea Nitrogen 48 mg/dL (6-20); Calcium 9.1 mg/dL (8.5-10.5); Carbon Dioxide 25 mmol/L (22-29); Chloride 104 mmol/L (98-107); Globulin 2.9 g/dL (1.3-4.6); Glomerular Filtration Rate 10.2 mL/min (90-130); Glucose 113 mg/dL (65-115); Osmolality Calculated 303 mOsm/kg (285-295); Potassium 5.2 mmol/L (3.5-5.1); Sodium 140 mmol/L (136-145); Total Bilirubin 0.5 mg/dL (0.15-1.2); Total Protein 6.2 g/dL (6.6-8.7)
--- NOTE | 2022-10-13 05:37 | PC.NURSE ---
Reported creatine lvl of 6.2 to this am on the telephone.
--- NOTE | 2022-10-13 07:36 | P.PN_ITS ---
Subjective Subjective: Nausea, abdominal pain. Reports no BM after suppository; had BM later after miralax, prune juice no urinary complaints Vitals/I&O/Wt Last Vital Signs Temp 98.1 F 10/13/22 00:00 Pulse 92 10/13/22 00:00 Resp 20 H 10/13/22 00:00 BP 137/93 10/13/22 00:00 Pulse Ox 93 10/13/22 00:00 O2 Del Method 10/13/22 00:00 10/12/22 10/13/22 10/13/22 22:59 06:59 14:59 Intake Total 1440 / 1440 Balance 1440 / 140 Weight last 48 hrs Weight 146.42 kg Weight 147.1 kg Physical Exam Const: COMMON NORMALS: no acute distress and alert Extremity: COMMON NORMALS: no pedal edema Neuro: SENSORIUM/ORIENTATION: Yes alert Data 10/13/22 04:32 10/13/22 04:32 Other Labs: CK normal Other data: seen via telemedicine with assistance of RN at bedside A&P Assessment and plan (1) Acute kidney injury: Plan 1. Acute kidney injury (process developed after May 2022) associated with patient reported 2-3 months gross hematuria. Minimal proteinuria. Complements normal. No eosinophilia or pyuria. Received IV contrast 10/11/22, likely component of contrast nephropathy. Laboratory testing including DENNISE, ANCA, SPEP, K/L pending. PVR 88, good urine output, rising serum creatinine 2. Hypertension. improved Recommend: Referral to center that can perform renal biopsy. I am told he is being transferred today. Attestations Medical Necessity Statement*: see above Time Spent in Patient Care: 16 - 35 minutes Coding Level of Care Code Acute Code for [facility] Diagnoses Acute kidney injury N17.9
[2022-10-13 08:00] VITALS: BP 139/89; PULSE 81; RESP 17; TEMP 36.6; O2SAT 97
[2022-10-13 08:19] LABS: PROTEIN, TOTAL 6.1 g/dL (6.1-8.1)
[2022-10-13] MEDS: sennosides-docusate Tablet 1 TAB PO (09:54)
[2022-10-13] MEDS: polyethylene glycol 3350 Pkt 17 gm PO (09:54)
[2022-10-13] MEDS: amlodipine 5 mg Tablet PO (09:54)
[2022-10-13 11:53] VITALS: BP 163/98; PULSE 97; RESP 16; O2SAT 96
[2022-10-13 14:05] LABS: SARS Covid-2 Antigen negative (Negative)
--- NOTE | 2022-10-13 14:36 | PC.NURSE ---
1200 Recieved call from [facility] transport [place], requesting a transport report. Info given and will Notify Magdalene pang covid test is resulted. 1430 Recieved call from [facility] stating Patient has a bed RM [id number] at [facility] [address] [facility], with number to call for report, updated neg Covid result given and number to call report recieved. Dr Motta notified with update.
--- NOTE | 2022-10-13 14:56 | P.TS_ITS ---
Transfer Summary Providers Date of Admission: 10/12/22 01:29 Date of Discharge/Transfer: 10/13/22 Attending Provider at Admission: Jeancarlos Corado MD Attending Provider at Transfer: David Motta Transfer Plans: Anticipated date of transfer: 10/13/22 . Diagnoses at Discharge Discharge Diagnosis (1) Acute kidney injury: Details from hospital stay: Consideration of glomerulonephritis. Transfer for further work-up at higher level facility including renal biopsy. Pending autoimmune profile. Pending heavy metal panel. Status: Acute Other Information Additional DC diagnoses/information: Lipid profile relatively okay. Treat hypertension, additional dose of amlodipine.? Continue amlodipine daily. Follow-up regarding prediabetes. Discontinue bladder wrack as bladder wrack harvested from polluted bahena may cause nephrotoxicity with presence of heavy metals including arsenic, cadmium, mercury. It can also cause hemorrhagic cystitis. Hemolytic anemia and abdominal pain were reported following ingestion of ashwagandha/mucuna pills containing high amounts of lead Consider discontinuation of bosewalia due to constipation and risk of bezoar formation. Please stop the devils claw due to hypertension and constipation with risk of worsening high blood pressure, risk of intestinal obstruction. Please stop zeolite due to aluminum contents. (2) Indirect left inguinal hernia: Follow-up with surgery. (3) Major depression, recurrent: (4) Proteinuria: (5) Hypertension: Additional dose amlodipine. (6) Morbidly obese: (7) Left-sided varicocele, fat stranding noted around left ureter, no signs of hydronephrosis, Reason for Visit Reason for Visit Nephrotic Symptoms Hospital Course Hospital Course Pleasant 37-year-old gentleman with history of depression, cannabis use, former smoker, was initially transferred from other healthcare from [facility] after presenting there with hematuria/pink urine for 2-3 months, evaluated by primary provider and urology, found to have acute kidney injury, has also been having generalized abdominal discomfort and constipation. Contrast CT scan from outside facility showed fat stranding around the kidneys and left ureter, however, no signs of hydronephrosis. He denies taking any NSAIDs. In the last week he started amoxicillin on Saturday for a tooth infection. He otherwise also noticed varicocele in the left testicle area and has been seen by urology. Was seen in office by surgery for left groin hernia. Admission of over 2 midnights is anticipated for assessment of management of takes a number of complementary/alternative medicines including actual Gonda route, bladder wrack, bosewalia, devils claw, sarwat, slippery elm bark, zeolite. He reports recovering from a Campylobacter infection back in February. He was assessed by nephrology. Additional imaging obtained here with Doppler ultrasound with finding of pulsatile arterial flow in kidneys bilaterally with slightly decreased renal blood flow within the left kidney. Renal veins patent bilaterally. Urinalysis on presentation with 5-10 RBC. Microalbumin 15, creatinine 37, ratio 395, sodium 130, FENa suggestive of intrinsic renal disease. Was assessed by nephrology, Actimmune panel is pending. With herbal medicines heavy metal panel was sent out and is pending as well. LDH with minimal elevation 232, haptoglobin normal, not suggestive of hemolysis. Reticulocyte percent reported 1.2, reticulocyte index reported 1.19. Peripheral smear requested. No history of CKD, last creatinine back in May was normal. Hypertensive on presentation, blood pressures with some improvement in amlodipine, will benefit from long-term better control. Also is found to be prediabetic A1c 6.1. Today finding of worsened renal function creatinine up to 6.2, BUN 48, potassium up to 5.2. As per discussion with nephrology and patient recommendation for further diagnosis including renal biopsy which cannot be obtained here as such transfer is arranged to higher level care facility and he is kindly accepted for further care at [facility] after discussion with receiving physician. Still constipation, generalized abdominal discomfort. No bowel movement despite addition of MiraLAX, senna/docusate. Physical Exam Narrative: Up in chair. Visitor at bedside. Const: COMMON NORMALS: patient oriented x3 and alert GENERAL APPEARANCE: cooperative NUTRITIONAL APPEARANCE: obese ORIENTATION/CONSCIOUSNESS: Yes awake HENMT: COMMON NORMALS: oropharynx normal Neck/C-Spine: COMMON NORMALS: no JVD Resp: COMMON NORMALS: normal respiratory effort and clear to auscultation bilaterally AUSCULTATION: clear to auscultation bilaterally Cardio: COMMON NORMALS: no JVD, regular rhythm, S1 normal heart sound present, S2 normal heart sound present and No murmurs present (Cardio) RHYTHM: regular rhythm HEART SOUNDS: S1 normal heart sound present and S2 normal heart sound present GI: COMMON NORMALS: Normal to inspection, nondistended, normoactive bowel sounds present, Soft to palpation and non-tender PALPATION: Yes Soft to palpation Extremity: COMMON NORMALS: no joint enlargement and no pedal edema Neuro: COMMON NORMALS: patient oriented x3 and moves all extremities SENSORIUM/ORIENTATION: Yes alert Skin: COMMON NORMALS: no rashes or lesions noted GENERAL SKIN EXAM: no rashes or lesions noted TS Data Studies Completed and Pending Pending at discharge Category Date Time Status ANCA [Anti-Neutrophil Cytoplasmic AB] Routine Lab 10/12/22 04:42 Received Basic Metabolic Panel AM LABS Lab 10/14/22 04:00 Ordered Basic Metabolic Panel AM LABS Lab 10/15/22 04:00 Ordered Basic Metabolic Panel AM LABS Lab 10/16/22 04:00 Ordered Complete Blood Count w/Auto AM LABS Lab 10/14/22 04:00 Ordered Complete Blood Count w/Auto AM LABS Lab 10/15/22 04:00 Ordered Glomerular Basement AB IGG Routine Lab 10/12/22 04:42 Received Heavy Metals Panel (Venous) Routine Lab 10/12/22 13:55 Received KAPPA/LAMBDA LIGHT FREE SERUM Routine Lab 10/12/22 04:42 Received [facility] DENNISE Profile Routine Lab 10/12/22 04:42 Received Total Protein Electrophoresis Routine Lab 10/12/22 04:42 Results Labs from last 24 hours 10/13/22 10/13/22 10/13/22 12:30 04:32 04:32 WBC 9.3 RBC 4.68 Hgb 13.3 Hct 41.2 L MCV 88.0 MCH 28.4 MCHC 32.3 RDW 12.5 Plt Count 185 MPV 8.9 Neut % (Auto) 64.5 Lymph % (Auto) 17.3 [place] % (Auto) 14.6 Eos % (Auto) 1.9 Baso % (Auto) 0.6 Neut # (Auto) 6.02 Lymph # (Auto) 1.6 [place] # (Auto) 1.4 H Eos # (Auto) 0.2 Baso # (Auto) 0.1 Nucleated RBC % (auto) 0 Nucleated RBCs # 0.0 Sodium 140 Potassium 5.2 H Chloride 104 Carbon Dioxide 25 Anion Gap 16.2 BUN 48 H Creatinine 6.2 H* GFR Calculation 10.2 L Glucose 113 Calculated Osmolality 303 H Calcium 9.1 Total Bilirubin 0.5 AST 13 ALT 20 Alkaline Phosphatase 54 Total Protein 6.2 L Albumin 3.3 L Globulin 2.9 SARS-CoV-2 Ag (Rapid) negative 10/12/22 04:42 WBC RBC Hgb Hct MCV MCH MCHC RDW Plt Count MPV Neut % (Auto) Lymph % (Auto) [place] % (Auto) Eos % (Auto) Baso % (Auto) Neut # (Auto) Lymph # (Auto) [place] # (Auto) Eos # (Auto) Baso # (Auto) Nucleated RBC % (auto) Nucleated RBCs # Sodium Potassium Chloride Carbon Dioxide Anion Gap BUN Creatinine GFR Calculation Glucose Calculated Osmolality Calcium Total Bilirubin AST ALT Alkaline Phosphatase Total Protein 6.1 Albumin Globulin SARS-CoV-2 Ag (Rapid) Completed Studies During Hospitalization Category Date Time Status CV renal doppler [id number] Routine Ultrasound 10/12/22 13:35 Completed Laboratory Last Values WBC 9.3 10^3/uL (4.0-10.0) 10/13/22 04:32 RBC 4.68 10^6/uL (4.1-5.3) 10/13/22 04:32 Hgb 13.3 g/dL (11.7-16.6) 10/13/22 04:32 Hct 41.2 % (42.0-52.0) L 10/13/22 04:32 MCV 88.0 fl (80-94) 10/13/22 04:32 MCH 28.4 pg (28.0-34.0) 10/13/22 04:32 MCHC 32.3 g/dL (30.0-36.0) 10/13/22 04:32 RDW 12.5 % (12.1-15.1) 10/13/22 04:32 Plt Count 185 10^3/cmm (130-400) 10/13/22 04:32 MPV 8.9 fL (7.4-10.4) 10/13/22 04:32 Neut % (Auto) 64.5 % 10/13/22 04:32 Lymph % (Auto) 17.3 % 10/13/22 04:32 [place] % (Auto) 14.6 % 10/13/22 04:32 Eos % (Auto) 1.9 % 10/13/22 04:32 Baso % (Auto) 0.6 % 10/13/22 04:32 Reticulocyte % (Auto) 1.2 % (0.5-2.0) 10/12/22 04:42 Neut # (Auto) 6.02 10^3/uL (1.8-7.7) 10/13/22 04:32 Lymph # (Auto) 1.6 10^3/uL (0.8-4.8) 10/13/22 04:32 [place] # (Auto) 1.4 10^3/uL (0.2-0.9) H 10/13/22 04:32 Eos # (Auto) 0.2 10^3/uL (0.0-0.8) 10/13/22 04:32 Baso # (Auto) 0.1 10^3/uL (0.0-0.1) 10/13/22 04:32 Nucleated RBC % (auto) 0 % 10/13/22 04:32 Nucleated RBCs # 0.0 /100WBC 10/13/22 04:32 Retic Production Index 1.19 10/12/22 04:42 Haptoglobin 141.0 mg/L (30-200) 10/12/22 04:42 Sodium 140 mmol/L (136-145) 10/13/22 04:32 Potassium 5.2 mmol/L (3.5-5.1) H 10/13/22 04:32 Chloride 104 mmol/L (98-107) 10/13/22 04:32 Carbon Dioxide 25 mmol/L (22-29) 10/13/22 04:32 Anion Gap 16.2 (5-19) 10/13/22 04:32 BUN 48 mg/dL (6-20) H 10/13/22 04:32 Creatinine 6.2 mg/dL (0.7-1.2) H* 10/13/22 04:32 GFR Calculation 10.2 mL/min (90-130) L 10/13/22 04:32 Glucose 113 mg/dL (65-115) 10/13/22 04:32 Estimat Average Glucose 128 10/12/22 04:42 Hemoglobin A1c 6.1 % (4.0-6.0) H 10/12/22 04:42 Calculated Osmolality 303 mOsm/kg (285-295) H 10/13/22 04:32 Calcium 9.1 mg/dL (8.5-10.5) 10/13/22 04:32 Phosphorus 4.8 mg/dL (2.5-4.5) H 10/12/22 04:42 Magnesium 2.1 mg/dL (1.7-2.3) 10/12/22 04:42 Total Bilirubin 0.5 mg/dL (0.15-1.2) 10/13/22 04:32 AST 13 U/L (0-40) 10/13/22 04:32 ALT 20 U/L (0-41) 10/13/22 04:32 Alkaline Phosphatase 54 U/L (40-130) 10/13/22 04:32 Lactate Dehydrogenase 232 U/L (135-225) H 10/12/22 04:42 Creatine Kinase 87 U/L (39-308) 10/12/22 04:42 C-Reactive Protein 91.7 mg/L (0.0-4.9) H 10/12/22 04:42 Total Protein 6.2 g/dL (6.6-8.7) L 10/13/22 04:32 Albumin 3.3 g/dL (3.5-5.2) L 10/13/22 04:32 Globulin 2.9 g/dL (1.3-4.6) 10/13/22 04:32 Triglycerides 118 mg/dL (0-150) 10/12/22 04:42 Cholesterol 118 mg/dL (0-200) 10/12/22 04:42 LDL Cholesterol, Calc 62 mg/dL (50-129) 10/12/22 04:42 HDL Cholesterol 32 mg/dL (60-100) L 10/12/22 04:42 LDL/HDL Ratio 1.94 RATIO (0.00-3.22) 10/12/22 04:42 Cholesterol/HDL Ratio 3.69 mg/dL (1.0-5.00) 10/12/22 04:42 Vitamin B12 372 pg/mL (232-1245) 10/12/22 04:42 TSH 1.77 uIU/mL (0.27-4.20) 10/12/22 04:42 Urine Color Colorless (Yellow) 10/12/22 05:10 Urine Appearance Clear (CLEAR) 10/12/22 05:10 Urine pH 5 (5-7) 10/12/22 05:10 Ur Specific Russell 1.005 (1.005-1.030) 10/12/22 05:10 Urine Protein Trace (Negative) 10/12/22 05:10 Urine Glucose (UA) Norm (Normal) 10/12/22 05:10 Urine Ketones Negative (Negative) 10/12/22 05:10 Urine Blood 2+ (Negative) H 10/12/22 05:10 Urine Nitrate Negative (Negative) 10/12/22 05:10 Urine Bilirubin Neg (Negative) 10/12/22 05:10 Urine Urobilinogen Norm mg/dL (Negative) 10/12/22 05:10 Ur Leukocyte Esterase Negative (Negative) 10/12/22 05:10 Urine RBC 5-10 /hpf (0-2) H 10/12/22 05:10 Urine WBC None /hpf (0-5) 10/12/22 05:10 Ur Eosinophil Smear TNP 10/12/22 05:10 Ur Squamous Epith Cells None /hpf (0-5) 10/12/22 05:10 Ur Renal Epithelial Cell 0-1 /hpf 10/12/22 05:10 Amorphous Sediment Not Reportable 10/12/22 05:10 Urine Bacteria None /hpf (NONE) 10/12/22 05:10 Urine Eosinophils No eosinophils seen 10/12/22 05:10 Ur Random Microalbumin 15 ug/dL (0-20) 10/12/22 05:10 Ur Random Sodium 30 mmol/L 10/12/22 05:10 Urine Creatinine 37 mg/dL (39-259) L 10/12/22 05:10 Urine Creatinine 38 mg/dL (39-259) L 10/12/22 05:10 Microalb/Creat Ratio 395 mg/dL (0-20) H 10/12/22 05:10 Urine Opiates Screen Positive ng/mL (Negative) H 10/12/22 05:10 Ur Barbiturates Screen Negative ng/mL (Negative) 10/12/22 05:10 Ur Phencyclidine Scrn Negative ng/mL (Negative) 10/12/22 05:10 Ur Amphetamines Screen Negative ng/mL (Negative) 10/12/22 05:10 U Benzodiazepines Scrn Negative ng/mL (Negative) 10/12/22 05:10 Urine Cocaine Screen Negative ng/mL (Negative) 10/12/22 05:10 U Marijuana (THC) Screen Negative ng/mL (Negative) 10/12/22 05:10 Complement C3 142 mg/dL (90-180) 10/12/22 04:42 Complement C4 19 mg/dL (10-40) 10/12/22 04:42 Hepatitis A IgM Ab Non-reactive (Nonreactive) 10/12/22 04:42 Hep Bs Antigen Non-reactive (Nonreactive) 10/12/22 04:42 Hep Bs Antibody 122.3 (11.5-1000) 10/12/22 04:42 Hep B Core Total Ab Non-reactive (Nonreactive) 10/12/22 04:42 Hepatitis C Antibody Non-reactive (Nonreactive) 10/12/22 04:42 HIV 1&2 Ab & HIV 1 Ag Non-reactive (Non-Reactiv) 10/12/22 04:42 HIV 1&2 Antibody Non-reactive (Non-Reactiv) 10/12/22 04:42 SARS-CoV-2 Ag (Rapid) negative (Negative) 10/13/22 12:30 Radiology Impressions Renal Ultrasound 10/12/22 13:35 IMPRESSION: Pulsatile arterial flow is documented within the kidneys bilaterally. There is slightly decreased renal blood flow documented within the left kidney. Recent Clincial Data Last Vital Signs Temp 97.8 F 10/13/22 08:00 Pulse 97 10/13/22 11:53 Resp 16 10/13/22 11:53 BP 163/98 10/13/22 11:53 Pulse Ox 96 10/13/22 11:53 O2 Del Method 10/13/22 00:00 Vital Signs Temp Pulse Resp BP Pulse Ox 10/13/22 11:53 97 16 163/98 96 10/13/22 08:00 97.8 F 81 17 139/89 97 Intake & Output/Weight 10/11/22 10/12/22 10/13/22 10/14/22 06:59 06:59 06:59 06:59 Intake Total 600 / 600 1440 / 1440 740 / 740 Output Total 125 / 125 1300 / 1300 Balance 475 / 475 140 / 140 740 / 740 Weight 146.42 kg Vitals Last Vital Signs Temp 97.8 F 10/13/22 08:00 Pulse 97 10/13/22 11:53 Resp 16 10/13/22 11:53 BP 163/98 10/13/22 11:53 Pulse Ox 96 10/13/22 11:53 O2 Del Method 10/13/22 00:00 TS Medications Medications Acetaminophen (Acetaminophen 500 Mg Tablet) 500 mg PO Q4H PRN PRN Reason: fever Albuterol/Ipratropium (Ipratropium-Albuterol 3 Ml Neb) 3 ml INHALATION Q6H PRN PRN Reason: SHORTNESS OF BREATH Amlodipine Besylate (Amlodipine 5 Mg Tablet) 5 mg PO DAILY [facility] Last Admin: 10/13/22 09:54 Dose: 5 mg Ondansetron HCl (Ondansetron 2 Mg/Ml Sdv 2 Ml) 4 mg IVP Q6H PRN PRN Reason: NAUSEA AND VOMITING Last Admin: 10/12/22 06:52 Dose: 4 mg Polyethylene Glycol (Polyethylene Glycol 3350 Pkt 17 Gm) 17 gm PO BID [facility] Last Admin: 10/13/22 09:54 Dose: 17 gm Senna/Docusate Sodium (Sennosides-Docusate Tablet) 1 tab PO DAILY [facility] Last Admin: 10/13/22 09:54 Dose: 1 tab Discontinued Medications Amlodipine Besylate (Amlodipine 5 Mg Tablet) 5 mg PO ONCE ONE Stop: 10/12/22 12:54 Last Admin: 10/12/22 13:31 Dose: 5 mg Bisacodyl (Bisacodyl 10 Mg Supp) 10 mg [place] ONCE ONE Stop: 10/12/22 13:24 Last Admin: 10/12/22 13:31 Dose: 10 mg Furosemide (Furosemide 20 Mg Tablet) 20 mg PO DAILY@0800 [facility] Last Admin: 10/12/22 08:48 Dose: 20 mg Morphine Sulfate (Morphine Ir 15 Mg Tablet) 15 mg PO Q6H PRN PRN Reason: pAIN Last Admin: 10/12/22 03:31 Dose: 15 mg Allergies Pork/Porcine Containing Products Allergy (Verified 10/12/22 08:38) Unknown [employer] preference is no pork or pork containing products (heparin) Home Medications Bladder Wrack 1 tab PO DAILY 10/12/22 [History Confirmed 10/12/22] Bosewalia 1 tab PO DAILY 10/12/22 [History Confirmed 10/12/22] Devil's Claw 1 tab PO DAILY 10/12/22 [History Confirmed 10/12/22] Zeolite 1 tab PO DAILY 10/12/22 [History Confirmed 10/12/22] ashwagandha root extract 1 tab PO DAILY 10/12/22 [History Confirmed 10/12/22] sarwat extract 500 mg capsule 500 mg PO DAILY 10/12/22 [History Confirmed 10/12/22] slippery elm bark 1 tab PO DAILY 10/12/22 [History Confirmed 10/12/22] Discharge Plan Discharge Patient Disposition: Xfer Short-Term Hosp Condition: Stable Prescriptions: No Action sarwat extract 500 mg Capsule 500 mg PO DAILY ashwagandha root extract 1 tab PO DAILY slippery elm bark 1 tab PO DAILY Bladder Wrack 1 tab PO DAILY Bosewalia 1 tab PO DAILY Devil's Claw 1 tab PO DAILY Zeolite 1 tab PO DAILY Referrals: Heriberto Ceballos MD [Physician] - 10/18/22 2:00 pm Activity Restrictions/Additional Instructions: Please discuss with your doctor regarding potential precautions, concerns, possible interactions of the complementary and alternative medicines. Discontinue bladder wrack as bladder wrack harvested from polluted bahena may cause nephrotoxicity with presence of heavy metals including arsenic, cadmium, mercury. It can also cause hemorrhagic cystitis. Hemolytic anemia and abdominal pain were reported following ingestion of ashwagandha/mucuna pills containing high amounts of lead Consider discontinuation of bosewalia due to constipation and risk of bezoar formation. Please stop the devils claw due to hypertension and constipation with risk of worsening high blood pressure, risk of intestinal obstruction. Please stop zeolite due to aluminum contents. Transfer Attestations Time Spent in Transfer Care: greater than 30 min Quality Metrics Clinical Quality Measures [ No reported AMI, CVA or VTE this stay] Coding Level of Care Code Acute Code for [facility] Fwd Diagnoses Acute kidney injury N17.9
[2022-10-13 16:00] VITALS: BP 155/90; PULSE 89; RESP 18; TEMP 36.6; O2SAT 98
[2022-10-13 18:00] VITALS: BP 155/90; PULSE 89; RESP 18; TEMP 36.6; O2SAT 98
--- NOTE | 2022-10-13 19:03 | PC.NURSE ---
1505 report called to Karina IZQUIERDO at [facility] in [facility] 1738 Patient transferred to [facility] per ems in [facility] patient in stable condition
[2022-10-15 11:44] LABS: KAPPA/LAMBDA LIGHT CHAINS FREE 1.92 (0.26-1.65); LAMBDA LIGHT CHAIN, FREE, SERU 28.6 mg/L (5.7-26.3)
[2022-10-15 13:44] LABS: Anti-Double Strand DNA AB 2 IU/mL; Jo-1 Antibody <1.0 NEG AI (<1.0 NEG); SM/RNP Antibodies <1.0 NEG AI (<1.0 NEG); SS-B/LA IGG <1.0 NEG AI (<1.0 NEG); Scleroderma Ab(Scl-70) Ab <1.0 NEG AI (<1.0 NEG); Ss-A/Ro Igg <1.0 NEG AI (<1.0 NEG)
[2022-10-16 09:14] LABS: ALBUMIN 3.2 g/dL (3.8-4.8); ALPHA 1 GLOBULIN 0.4 g/dL (0.2-0.3); ALPHA 2 GLOBULIN 0.8 g/dL (0.5-0.9); BETA 1 GLOBULIN 0.4 g/dL (0.4-0.6); BETA 2 GLOBULIN 0.4 g/dL (0.2-0.5)
[2022-10-16 14:30] LABS: Glomerular Bsmt Membrane IGG <1.0 AI
[2022-10-16 15:34] LABS: ANCA Screen NEGATIVE (NEGATIVE)
== END 2022-10-13 17:38 | disposition short-term general hospital (02) | DRG 683 ==
PROVIDERS: Internal Medicine; Admitting Provider Internal Medicine; Visit Provider Internal Medicine
DX: N17.9 Acute kidney failure, unspecified (principal); D58.9 Hereditary hemolytic anemia, unspecified; F33.9 Major depressive disorder, recurrent, unspecified; Z68.41 Body mass index [BMI] 40.0-44.9, adult; N05.9 Unspecified nephritic syndrome with unspecified morphologic changes; I10 Essential (primary) hypertension; K59.00 Constipation, unspecified; K40.90 Unilateral inguinal hernia, without obstruction or gangrene, not specified as recurrent; E66.01 Morbid (severe) obesity due to excess calories; I86.1 Scrotal varices; F12.21 Cannabis dependence, in remission; Z87.891 Personal history of nicotine dependence
CPT/HCPCS: 36415; 51798; 80048; 80053; 80061; 80306; 80503; 81001; 82040; 82044; 82175; 82550; 82570; 82607; 83010; 83036; 83520; 83615; 83655; 83735; 83825; 83883; 84100; 84155; 84165; 84300; 84443; 85014; 85025; 85045; 85999; 86036; 86140; 86160; 86225; 86235; 86705; 86706; 86709; 86803; 87340; 87426; 87806; 93975; J2405

== ENCOUNTER → 2023-03-18 10:11 | Outpatient (BNVA) | payer OTHER, SELFPAY | PROVIDERS: PCP Family Medicine; Visit Provider Family Medicine | DX: N17.9 Acute kidney failure, unspecified (principal); I10 Essential (primary) hypertension; I86.1 Scrotal varices; K40.90 Unilateral inguinal hernia, without obstruction or gangrene, not specified as recurrent; R30.0 Dysuria; M54.9 Dorsalgia, unspecified; G89.29 Other chronic pain; Z68.42 Body mass index [BMI] 45.0-49.9, adult; Z12.11 Encounter for screening for malignant neoplasm of colon | CPT/HCPCS: 80053; 81000; 85025; 87086 ==

== ENCOUNTER 2024-05-14 13:57 | Emergency (ER) | payer MEDICAID, SELFPAY ==
[2024-05-14 14:17] LABS: Basophils # 0.1 10^3/uL (0.0-0.1); Basophils % 0.9 %; Eosinophils # 0.1 10^3/uL (0.0-0.8); Eosinophils % 1.6 %; Hematocrit 47.7 % (37-53); Lymphocytes # 1.9 10^3/uL (0.8-4.8); Lymphocytes % 28.7 %; Mean Corpuscular HGB Conc 32.7 g/dL (30-55); Mean Corpuscular Volume 85.6 fl (82-101); Monocytes # 0.5 10^3/uL (0.2-0.9); Monocytes % 6.8 %; Neutrophils % 61.1 %; Nucleated Red Blood Cells % 0 %; Platelet Count 236 10^3/cmm (157-399); Red Blood Count 5.57 10^6/uL (3.85-5.65); Red Cell Distribution Width 13.2 % (12.1-15.1); White Blood Count 6.72 10^3/uL (3.29-11.43)
[2024-05-14 14:45] LABS: Alanine Aminotransferase 233 U/L (0-41); Albumin Level 4.3 g/dL (3.5-5.2); Alkaline Phosphatase 97 U/L (40-130); Anion Gap 17.5 (5-19); Aspartate Amino Transferase 93 U/L (0-40); Blood Urea Nitrogen 11 mg/dL (6-20); Calcium 9.7 mg/dL (8.5-10.5); Carbon Dioxide 24 mmol/L (22-29); Chloride 96 mmol/L (98-107); Globulin 3.3 g/dL (1.3-4.6); Glomerular Filtration Rate 94.4 mL/min (90-130); Glucose 494 mg/dL (65-115); Osmolality Calculated 297 mOsm/kg (285-295); Potassium 4.5 mmol/L (3.5-5.1); Sodium 133 mmol/L (136-145); Total Bilirubin 0.8 mg/dL (0.15-1.2); Total Protein 7.6 g/dL (6.6-8.7)
[2024-05-14 15:15] VITALS: BP 159/98; PULSE 102; RESP 19; TEMP 36.8; O2SAT 94; BMI 46.1
[2024-05-14 16:00] VITALS: RESP 18
--- NOTE | 2024-05-14 16:15 | XR_ITS ---
WS: [id number] Examination: XR lumbar spine 2-3V* [id number] Reason for Exam: back pain Date: 05/14/2024 Comparison: None. Findings: The pedicles and the bone density are intact. There is straightening without wedging or compression. There is no subluxation Degenerative changes are identified. There is dominant narrowing of the L4-5 and L5-S1 disc spaces. XR/XR lumbar spine 2-3V* [id number] Impression: There is no compression or subluxation. Degenerative disc disease is present pa rticularly inferiorly
--- NOTE | 2024-05-14 16:24 | ED_ITS ---
HPI - Recheck/Abnormal Lab/Rx 2 General: Chief Complaint: Recheck/Abnormal Lab/Rx Stated Complaint: back pain (sent by walkin) Time Seen by Provider: 05/14/24 16:12 Source: patient Mode of arrival: ambulatory Limitations: no limitations History of Present Illness: 38-year-old male with history of back pa in states been having increasing lower back pain for the last month. He states that history of kidney failure to make sure his kidney function was normal. States pain sharp in nature worse with movement and palpation. He denies any bowel or bladder incontinence. Denies any fever has had no vomiting or diarrhea. Related Data Home Medications Medication Instructions Recorded Confirmed vyxvefir-sfisxqud-xhgsv acid 400 tab PO 03/18/23 05/14/24 mcg-vit K 20 mcg-lycop 300 mcg tablet (One-A-Day Men's Multivitamin) Previous Rx's Medication Instructions Recorded meloxicam 15 mg tablet 15 mg PO DAILY #90 tabs 03/25/23 hydrocodone 5 mg-acetaminophen 325 1 tab PO Q6H PRN pain #14 tabs 05/14/24 mg tablet metformin 500 mg tablet 500 mg PO BID #60 tabs 05/14/24 methocarbamol 750 mg tablet 750 mg PO Q6H PRN spasms #20 tabs 05/14/24 Allergies Allergy/AdvReac Type Severity Reaction Status Date / Time Pork/Porcine Containing Allergy Unknown Verified 05/14/24 13:03 Products Review of Systems 2 Const: Denies: fever(s), chills, body aches or change in appetite ENMT: Denies: throat pain or dental pain Card: Denies: chest pain Resp: Denies: dyspnea GI: Denies: abdominal pain, nausea, vomiting or diarrhea Musc: Reports: back pain; Denies: neck pain Skin/Breast: Denies: rash Neuro: Denies: headache(s) PFSH ED 2 PFSH: Medical History Bleeding hemorrhoids Hard stool Cannabis use disorder, moderate, in early remission, dependence Marital/partner relational problem Cannabis use disorder, severe, dependence Depression Surgical History Hx of colonoscopy with polypectomy [place] 3-4 yrs ago Family History Other Dementia Diabetes Hypertension Denies family history of CAD (coronary artery disease) Clotting disorder Hyperlipidemia Psychiatric illness Chronic kidney disease (CKD) Anesthesia complication Bleeding disorder Lung disease Cancer Stroke Social History Smoking and tobacco/nicotine status: unknown if used tobacco/nicotine Alcohol intake: current Alcohol intake frequency: few times a month Substance/Drug Use: never Lives independently: Yes Marital status: Number of children: 3 Current occupational status: employed 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 Nedra/Scientologist: Other Special nedra needs: Yes (Maritza) Agree to transfusion: No Physical Exam 2 Const: COMMON NORMALS: no acute distress, patient oriented x3 and healthy appearing HENMT: COMMON NORMALS: normocephalic and atraumatic HEAD & SCALP: n ormocephalic and atraumatic Eye: COMMON NORMALS: conjunctivae normal CONJUNCTIVA: Yes conjunctivae normal Neck/C-Spine: COMMON NORMALS: full ROM and supple Chest: COMMONS NORMALS: normal inspection of the chest Resp: COMMON NORMALS: normal respiratory effort Cardio: COMMON NORMALS: regular rate, regular rhythm and No murmurs present (Cardio) RATE: regular rate RHYTHM: regular rhythm GI: COMMON NORMALS: Normal to inspection, nondistended, normoactive bowel sounds present, Soft to palpation, non-tender and no masses PALPATION: Yes Soft to palpation Back/Pelvis: OTHER: Tenderness over right lower back no midline tenderness Extremity: COMMON NORMALS: normal to inspection and full ROM Neuro: COMMON NORMALS: patient oriented x3, moves all extremities and no focal motor deficits Psych: COMMON NORMALS: mental status grossly normal, Normal thought process present and cooperative THOUGHT PROCESS: Normal thought process present Skin: COMMON NORMALS: no rashes or lesions noted and no wounds GENERAL SKIN EXAM: no rashes or lesions noted Course 2 Vital Signs: Vital signs: Vital Signs Temperature 98.2 F 05/14/24 15:15 Pulse Rate 102 H 05/14/24 15:15 Respiratory Rate 16 05/14/24 17:50 Blood Pressure 159/98 05/14/24 15:15 Pulse Oximetry 94 05/14/24 15:15 Oxygen Delivery Me thod Room Air 05/14/24 17:50 MDM - Recheck/Abnormal Lab/Rx Medical Decision Making Patient presents here with low back pain is likely muscular in nature creatinine here is normal he is hyperglycemic did check an A1c likely a type II diabetic we will start him on metformin he is to follow-up with his PCP to further manage his back back pain and diabetes. He is to return if worsening he has no signs of cord compression here or epidural abscess Medical Records I reviewed the patient's medical records. Lab Data I reviewed the patient's lab results. 05/14/24 14:10 05/14/24 14:10 Radiology Impressions Lumbar Spine X-Ray 05/14/24 16:15 Impression: There is no compression or subluxation. Degenerative disc disease is present particularly inferiorly Laboratory Results WBC 6.72 10^3/uL (3.29-11.43) 05/14/24 14:10 RBC 5.57 10^6/uL (3.85-5.65) 05/14/24 14:10 Hgb 15.60 g/dL (11.27-16.99) 05/14/24 14:10 Hct 47.7 % (37-53) 05/14/24 14:10 MCV 85.6 fl (82-101) 05/14/24 14:10 MCH 28.0 pg (27-33) 05/14/24 14:10 MCHC 32.7 g/dL (30-55) 05/14/24 14:10 RDW 13.2 % (12.1-15.1) 05/14/24 14:10 Plt Count 236 10^3/cmm (157-399) 05/14/24 14:10 MPV 9.0 fL (7.4-10.4) 05/14/24 14:10 Neut % (Auto) 61.1 % 05/14/24 14:10 Lymph % (Auto) 28.7 % 05/14/24 14:10 Bonner % (Auto) 6.8 % 05/14/24 14:10 Eos % (Auto) 1.6 % 05/14/24 14:10 Baso % (Auto) 0.9 % 05/14/24 14:10 Neut # (Auto) 4.10 10^3/uL (1.8-7.7) 05/14/24 14:10 Lymph # (Auto) 1.9 10^3/uL (0.8-4.8) 05/14/24 14:10 Bonner # (Auto) 0.5 10^3/uL (0.2-0.9) 05/14/24 14:10 Eos # (Auto) 0.1 10^3/uL (0.0-0.8) 05/14/24 14:10 Baso # (Auto) 0.1 10^3/uL (0.0-0.1) 05/14/24 14:10 Nucleated RBC % (auto) 0 % 05/14/24 14:10 Nucleated RBCs # 0.0 /100WBC 05/14/24 14:10 Sodium 133 mmol/L (136-145) L 05/14/24 14:10 Potassium 4.5 mmol/L (3.5-5.1) 05/14/24 14:10 Chloride 96 mmol/L (98-107) L 05/14/24 14:10 Carbon Dioxide 24 mmol/L (22-29) 05/14/24 14:10 Anion Gap 17.5 (5-19) 05/14/24 14:10 BUN 11 mg/dL (6-20) 05/14/24 14:10 Creatinine 0.9 mg/dL (0.7-1.2) 05/14/24 14:10 GFR Calculation 94.4 mL/min (90-130) 05/14/24 14:10 Glucose 494 mg/dL (65-115) H 05/14/24 14:10 POC Glucose 282 mg/dL (70-110) H 05/14/24 18:06 Estimat Average Glucose 289 05/14/24 14:10 Hemoglobin A1c 11.7 % (4.0-6.0) H 05/14/24 14:10 Calculated Osmolality 297 mOsm/kg (285-295) H 05/14/24 14:10 Calcium 9.7 mg/dL (8.5-10.5) 05/14/24 14:10 Total Bilirubin 0.8 mg/dL (0.15-1.2) 05/14/24 14:10 AST 93 U/L (0-40) H 05/14/24 14:10 ALT 233 U/L (0-41) H 05/14/24 14:10 Alkaline Phosphatase 97 U/L (40-130) 05/14/24 14:10 Total Protein 7.6 g/dL (6.6-8.7) 05/14/24 14:10 Albumin 4.3 g/dL (3.5-5.2) 05/14/24 14:10 Globulin 3.3 g/dL (1.3-4.6) 05/14/24 14:10 Urine Color [place] (Yellow) A 05/14/24 17:16 Urine Appearance Clear (CLEAR) 05/14/24 17:16 Urine pH 5.5 (5-7) 05/14/24 17:16 Ur Specific [place] 1.047 (1.005-1.030) H 05/14/24 17:16 Urine Protein Negative (Negative) 05/14/24 17:16 Urine Glucose (UA) 3+ (Normal) H 05/14/24 17:16 Urine Ketones Trace (Negative) 05/14/24 17:16 Urine Blood Negative (Negative) 05/14/24 17:16 Urine Nitrate Negative (Negative) 05/14/24 17:16 Urine Bilirubin Negative (Negative) 05/14/24 17:16 Urine Urobilinogen 1.0 mg/dL (Negative) 05/14/24 17:16 Ur Leukocyte Esterase Negative (Negative) 05/14/24 17:16 Amorphous Sediment Not Reportable 05/14/24 17:16 All radiology interpretation(s) finalized by discharge Discharge Plan Discharge Patient Disposition: Home Clinical Impression: Low back pain, Hyperglycemia Condition: Stable Prescriptions: New hydrocodone-acetaminophen 5-325 mg tablet 1 tab PO Q6H PRN (Reason: pain) Qty: 14 0RF methocarbamol 750 mg tablet 750 mg PO Q6H PRN (Reason: spasms) Qty: 20 0RF metformin 500 mg tablet 500 mg PO BID Qty: 60 0RF No Action One-A-Day Men's Multivitamin 400-20-300 mcg tablet PO meloxicam 15 mg tablet 15 mg PO DAILY Qty: 90 1RF Discharge Orders: Discharge ED (Routine); Ordered 05/14/24 Ordered By: Lorenzo Hdez Referrals: Heriberto Ceballos MD [Primary Care Provider] - 4-7 days Discharge Diet: Advance as tolerated Discharge Activity: Resume usual activity Patient Instructions: Hyperglycemia, Back Pain (ED) Coding Level of Care Code 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
[2024-05-14] MEDS: insulin regular-human 100 units/1 mL 10 UNIT IVP (16:39)
[2024-05-14 16:42] VITALS: RESP 16
[2024-05-14] MEDS: morphine 4 mg/mL SDV 1 mL IVP (16:42)
[2024-05-14] MEDS: ondansetron 2 mg/ML SDV 2 mL 4 MG IVP (16:42)
[2024-05-14] MEDS: sodium chloride 0.9% 1,000 ML 999 ML IV ×2 (16:43→17:24)
[2024-05-14 16:45] LABS: Estmated Average Glucose 289; Hemoglobin A1C 11.7 % (4.0-6.0)
[2024-05-14 17:39] LABS: Charge for UA Resulting for Rev
[2024-05-14 17:43] LABS: Bilirubin Urine Negative (Negative); Blood Urine Negative (Negative); Glucose Urine UA 3+ (Normal); Ketones Urine Trace (Negative); Leukocyte Esterase Urine Negative (Negative); Nitrate Urine Negative (Negative); Protein Urine Negative (Negative); Urine Appearance Clear (CLEAR); pH Urine 5.5 (5-7)
[2024-05-14 17:47] LABS: Specific Gravity, Urine 1.047 (1.005-1.030); Urine Color Orange (Yellow)
[2024-05-14 17:50] VITALS: RESP 16
[2024-05-14 18:08] LABS: Glucose Point of Care 282 mg/dL (70-110)
[2024-05-14 18:37] VITALS: BP 170/89; PULSE 86; RESP 16; O2SAT 95
[2024-05-14 18:42] VITALS: BP 170/89; PULSE 96; RESP 16; O2SAT 95
== END 2024-05-14 18:45 | disposition home or self-care (01) ==
PROVIDERS: Emergency Provider Emergency Medicine; PCP Family Medicine
DX: M54.50 Low back pain, unspecified (principal); R73.9 Hyperglycemia, unspecified
CPT/HCPCS: 36415; 36416; 72100; 80053; 81000; 81003; 81015; 82962; 83036; 85025; 96361; 96374; 96375; 99284; J1815; J2270; J2405; J7030

== ENCOUNTER 2024-06-16 08:15 | Day surgery (SDC) | payer MEDICAID, OTHER, SELFPAY ==
[2024-06-16] VITALS (17 sets, daily range): BP systolic 125–182; BP diastolic 77–107; PULSE 84–96; RESP 15–20; TEMP 36.5–37.1; O2SAT 92–98; BMI 46.3
[2024-06-16] MEDS: sodium chloride 0.9% 1,000 ML 30 ML IV (09:14)
[2024-06-16 09:21] LABS: Glucose Point of Care 243 mg/dL (70-110)
--- NOTE | 2024-06-16 09:38 | ANES.PREANE2 ---
Pre-Anesthetic Assessment Height/Weight: Height 1.85 m Weight 159.211 kg Temp Pulse Resp BP Pulse Ox O2 Del Method 97.8 F 84 16 160/101 96 Room Air 06/16/24 08:40 06/16/24 08:40 06/16/24 08:40 06/16/24 08:40 06/16/24 08:40 06/16/24 08:57 Operation Date: 06/16/24 10:10 Proposed Procedures p Laparoscopic Inguinal Hernia Repair with mesh [id number] x2, K40.20(Bilateral) - Alfa Parnell DO Familial anesthetic complications: None Was Beta Lona taken within 24 hours: N/A Was Clonidine taken within 24 hours: N/A Last intake: Intake Last Liquid Date 06/15/24 Last Liquid Time 21:00 Last Solid Date 06/15/24 Last Solid Time 20:00 Social No alcohol and No tobacco Takes Kratom daily; states he has been off all other supplements Exam alert, oriented x 3, clear to auscultation bilaterally and regular rate & rhythm Airway Mallampati: Class IV Dentition: other (missing teeth) Comments: Comments: Levi, large neck CV/HEM Hypertension Episode of acute renal failure, most recent scr wnl Metabolic Diabetes Mellitus and Morbid Obesity Anesthetic Plan ASA status: 3 Anesthesia: General Risk of > 500 ml blood loss (7ml/kg in children): No Medications/Allergies Home Medications Medication Instructions Recorded Confirmed Last Taken Type dhdujtqk-gofdoilr-tvvip acid 400 1 tab PO DAILY 03/18/23 06/16/24 05/12/24 History mcg-vit K 20 mcg-lycop 300 mcg tablet (One-A-Day Men's Multivitamin) methocarbamol 750 mg tablet 750 mg PO Q6H PRN spasms #20 tabs 05/14/24 06/16/24 05/26/24 Rx blood sugar diagnostic (Blood #90 ea 06/09/24 06/15/24 Unknown Rx Glucose Test strips) blood-glucose meter (Advanced #1 ea 06/09/24 06/15/24 Unknown Rx Glucose Meter) metformin 500 mg tablet 500 mg PO BID #180 tabs 06/09/24 06/15/24 06/15/24 08:00 Rx Allergies Allergy/AdvReac Type Severity Reaction Status Date / Time Pork/Porcine Containing Allergy Unknown Verified 06/15/24 11:14 Products Current Medications Generic Name Dose Route Start Last Admin Trade Name Satnamq PRN Reason Stop Dose Admin Sodium Chloride 1,000 mls @ 30 mls/hr 06/16/24 08:45 06/16/24 09:14 Sodium Chloride 0.9% IV 06/17/24 08:44 30 mls/hr .Q24H OUSMANE Administration PFSH Anesthesia Medical History Bleeding hemorrhoids Hard stool Cannabis use disorder, moderate, in early remission, dependence Marital/partner relational problem Cannabis use disorder, severe, dependence Depression Surgical History Hx of colonoscopy with polypectomy [place] 3-4 yrs ago Family History Other Dementia Diabetes Hypertension Denies family history of CAD (coronary artery disease) Clotting disorder Hyperlipidemia Psychiatric illness Chronic kidney disease (CKD) Anesthesia complication Bleeding disorder Lung disease Cancer Stroke Social History Smoking and tobacco/nicotine status: former use of tobacco/nicotine Alcohol intake: current Alcohol intake frequency: few times a month Substance/Drug Use: never Lives independently: Yes Marital status: Number of children: 3 Current occupational status: employed 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
--- NOTE | 2024-06-16 09:39 | W.PM.OPSUD ---
Surgery/Procedure H&P Update DATE OF PROCEDURE: June 16, 2024 DATE H&P PERFORMED: 06/15/24 H&P UPDATE INFORMATION: I have reviewed H&P completed within last 30 days, I have examined patient prior to procedure and No changes to prior documentation PLANNED PROCEDURE: Operation Date: 06/16/24 10:10 Proposed Procedures p Laparoscopic Inguinal Hernia Repair with mesh [id number] x2, K40.20(Bilateral) - Alfa Parnell DO
[2024-06-16] MEDS: ceFAZolin 3,000 MG in sodium chloride 0.9% (plus) 100 ML 200 MG IV (10:45)
[2024-06-16] MEDS: lidocaine-epi 2% PF 1:200,000 20 mL SDV XX (11:06)
--- NOTE | 2024-06-16 11:50 | PM.OP ---
Operative Report Date of procedure: June 16, 2024 Surgeon: Alfa Parnell DO Procedure: Pre-op diagnosis: Bilateral inguinal hernias Post-op diagnosis: Left pantaloon hernia Right inguinal direct inguinal hernia Procedure done: Laparoscopic (TEPP) repair of left inguinal hernia with mesh Laparoscopic (TEPP) repair of right inguinal hernia with mesh Implants: Left and right extra-large 3D max Bard meshes Specimens removed/disposition: None Surgeon: Alfa Parnell DO Anesthesia: General and Local Estimated blood loss (mL): 5 Complications: None apparent Brief History: This is a very pleasant 38-year-old gentleman who presented my office with bilateral inguinal hernias. Laparoscopic repair with mesh was indicated. The risk and benefits were explained and documented. Procedure: Patient was wheeled into the operative room and placed on the OR table in a supine position. Abdomen was inspected prepped and draped in usual sterile fashion. Time-out was performed and all present were in agreement. A 15 blade scalpel was used to make 1.2 centimeter incision infraumbilically. Combination of sharp and blunt dissection was performed down to the anterior rectus sheath which was opened sharply. The dissecting balloon was then inserted into the space of Retzius and blown up. We put the camera into the port and identified that we were in the correct space. I then placed 2 5 millimeter trocars suprapubically in the midline. I then used endokitners to bluntly dissect in the space of Retzius out laterally. An indirect inguinal hernia was identified on the right. Blunt dissection was performed to dissect down the hernia sac until the vas deferens dove medially. An extra-large 3D max Bard right inguinal mesh was then placed into the space of Retzius. The mesh was unrolled and tacked once medially at the pubic bone. The mesh laid out nicely over the spermatic cord. As a direct and an indirect inguinal hernia, pantaloon hernia, were identified on the left. Blunt dissection was performed to dissect down the hernia sac until the vas deferens dove medially. An extra-large 3D max Bard left inguinal mesh was then placed into the space of Retzius. The mesh was unrolled and tacked once medially at the pubic bone. The mesh laid out nicely over the spermatic cord. Hernia sacs were held underneath the meshes as the insufflation was released. Incisions were closed with 4 O Vicryl in a subcuticular interrupted fashion. Skin glue was applied. Patient tolerated the procedure well.
[2024-06-16] MEDS: fentaNYL 50 mcg/mL INJ 2mL IVP ×2 (12:25→12:38)
[2024-06-16] MEDS: HYDROmorphone 1 mg/mL INJ 1 mL 0.5 MG IVP (12:51)
--- NOTE | 2024-06-16 14:40 | ANE.PACU2 ---
Inpatient post-anesthesia follow up: Airway intact: Yes Vital signs: Temperature 97.9 F Pulse Rate 91 Respiratory Rate 16 Blood Pressure 125/97 Pulse Oximetry 95 Oxygen Delivery Me thod Room Air Oxygen Flow Rate Fraction of Inspir ed Oxygen Hydration adequate: Yes Nausea and vomiting: No Pain level: 1 Mental status: Baseline
== END 2024-06-16 14:40 | disposition home or self-care (01) ==
PROVIDERS: PCP Nurse Practitioner; Visit Provider Surgery
PROC: (CPT 49650; principal; 2024-06-16 10:00)
DX: K40.20 Bilateral inguinal hernia, without obstruction or gangrene, not specified as recurrent (principal); I10 Essential (primary) hypertension; E11.9 Type 2 diabetes mellitus without complications; E66.01 Morbid (severe) obesity due to excess calories; Z68.42 Body mass index [BMI] 45.0-49.9, adult; F32.A Depression, unspecified; Z87.891 Personal history of nicotine dependence; Z79.84 Long term (current) use of oral hypoglycemic drugs
CPT/HCPCS: 49650; 36416; 51702; 82962; C1781; J0690; J1100; J1170; J1885; J2250; J2405; J2704; J3010; J3490; J7030

== ENCOUNTER → 2024-08-11 09:54 | Outpatient (BNVA) | payer OTHER, MEDICAID, SELFPAY | PROVIDERS: PCP Nurse Practitioner; Visit Provider Nurse Practitioner | DX: E11.9 Type 2 diabetes mellitus without complications (principal); I10 Essential (primary) hypertension; E66.01 Morbid (severe) obesity due to excess calories; Z68.42 Body mass index [BMI] 45.0-49.9, adult | CPT/HCPCS: 80053; 83036 ==

== ENCOUNTER → 2024-12-02 13:55 | Outpatient (BNVA) | payer OTHER, MEDICAID, SELFPAY | PROVIDERS: PCP Nurse Practitioner; Visit Provider Nurse Practitioner | DX: E11.9 Type 2 diabetes mellitus without complications (principal) | CPT/HCPCS: 83036 ==

== ENCOUNTER 2024-12-08 14:00 | Outpatient (CLI) | payer OTHER, MEDICAID, SELFPAY | END 2024-12-08 14:01 | disposition home or self-care (01) | LOC: SLEEP 14:02 | PROVIDERS: PCP Nurse Practitioner; Visit Provider Anesthesiology Pain Medicine | DX: G47.33 Obstructive sleep apnea (adult) (pediatric) (principal) | CPT/HCPCS: G0399 ==